=== PATIENT | female | born 1990 | race Caucasian/White ===

== ENCOUNTER 2023-01-27 16:31 | Outpatient (CLI) | payer OTHER, SELFPAY ==
--- NOTE | 2023-01-27 17:00 | CRLHL7_ITS ---
For Patients: As a result of the Cures Act, medical imaging exams and procedure reports are released immediately into your electronic medical record. You may view this report before your referring provider. If you have questions, please contact your health care provider. INDICATION: Dating and viability. LMP 11/23/2022. COMPARISON: None. TECHNIQUE: Real-time cox-scale imaging of the pelvis was performed. FINDINGS: Sonographic imaging demonstrates a single living intrauterine gestation. The embryo has a regular cardiac rate measuring 182 beats per minute. The embryo`s crown-rump length measurement of 2.7 cm corresponds to a gestational age of 9 weeks 4 days with a sonographic due date of 08/28/2023. There is a normal-appearing yolk sac. The placenta has not yet developed. No evidence of a perigestational hemorrhage. The cervix appears closed. The right ovary measures 4.6 x 1.6 x 1.6 cm and the left ovary measures 3.1 x 2.1 x 2.3 cm. No free fluid in the cul-de-sac. IMPRESSION: 1. Single living intrauterine gestation with crown rump length 2.7 cm which corresponds to a gestational age of 9 weeks 4 days with a sonographic due date of 08/28/2023. 2. The clinical gestational age by LMP age is 9 weeks 2 days. Dictated by Cee Elliott MD @ 01/27/2023 7:29:15 PM (Electronically Signed)
== END 2023-01-27 16:32 | disposition home or self-care (01) ==
LOC: US 16:32
PROVIDERS: Visit Provider Registered Nurse
DX: Z34.91 Encounter for supervision of normal pregnancy, unspecified, first trimester (principal); Z3A.09 9 weeks gestation of pregnancy
CPT/HCPCS: 0353U; 76817; 84443; 86592; 86762; 86787; 86850; 86900; 86901; 87086

== ENCOUNTER 2023-06-10 08:30 | Outpatient (CLI) | payer OTHER, SELFPAY | END 2023-06-10 08:31 | disposition home or self-care (01) | LOC: NFLDREF 06-11 07:50 | PROVIDERS: Visit Provider Advanced Practice Midwife | DX: O09.813 Supervision of pregnancy resulting from assisted reproductive technology, third trimester (principal); E03.9 Hypothyroidism, unspecified; Z3A.28 28 weeks gestation of pregnancy | CPT/HCPCS: 84443; 86592 ==

== ENCOUNTER 2023-07-20 13:38 | Outpatient (CLI) | payer OTHER, SELFPAY ==
--- NOTE | 2023-07-20 14:00 | CRLHL7_ITS ---
For Patients: As a result of the Century Cures Act, medical imaging exams and procedure reports are released immediately into your electronic medical record. You may view this report before your referring provider. If you have questions, please contact your health care provider. INDICATION: Third trimester scan, evaluate growth. COMPARISON: 01/27/2023 TECHNIQUE: Real time cox scale imaging of the fetus was performed. FINDINGS: Sonographic imaging demonstrates a single living intrauterine gestation. Fetus demonstrates a regular cardiac rate of 145 beats per minute. Fetus has a vertex position. The placenta lies posteriorly. Amniotic fluid volume appears normal and there is a single deepest vertical pocket: 5.7 cm. The estimated weight is 2560gm which lies at the 65th %. BPD 73rd percentile. HC 72nd percentile. AC 73rd percentile. FL 43rd percentile. The HC/AC ratio measures 1.04 range (0.93-1.10). IMPRESSION: Sonographic gestational age 35 weeks 2 days and sonographic due date 08/22/2023. Sonographic age 1 week ahead of the clinical age. Estimated weight 65th percentile. Abdominal circumference 73rd percentile. Dictated by Jason Addison MD @ 07/22/2023 6:36:25 AM (Electronically Signed)
== END 2023-07-20 13:39 | disposition home or self-care (01) ==
LOC: US 13:39
PROVIDERS: PCP Family Medicine; Visit Provider Advanced Practice Midwife
DX: O09.813 Supervision of pregnancy resulting from assisted reproductive technology, third trimester (principal); Z3A.35 35 weeks gestation of pregnancy
CPT/HCPCS: 76816

== ENCOUNTER 2023-08-06 10:22 | Outpatient (CLI) | payer OTHER, SELFPAY ==
[2023-08-07 15:33] LABS: Strep B DNA Probe POSITIVE (Negative)
[2023-08-07 15:34] LABS: Strep B Pen/Amox Allergy No
== END 2023-08-06 10:23 | disposition home or self-care (01) ==
PROVIDERS: PCP Family Medicine; Visit Provider Advanced Practice Midwife
DX: Z34.93 Encounter for supervision of normal pregnancy, unspecified, third trimester (principal); Z3A.37 37 weeks gestation of pregnancy
CPT/HCPCS: 82565; 82570; 84156; 84450; 84460; 84520; 84550; 87081; 87653

== ENCOUNTER 2023-08-08 06:53 | Inpatient (IN) | payer OTHER, SELFPAY ==
[2023-08-08] VITALS (15 sets, daily range): BP systolic 115–146; BP diastolic 73–95; PULSE 84–131; RESP 16; TEMP 36.8–37.1; O2SAT 91–99; BMI 36.5
--- NOTE | 2023-08-08 08:13 | P.LDBA_ITS ---
Subjective History of Present Illness Date Seen: 08/08/23 Narrative: Patient is being admitted to Labor and Delivery for IOL for preeclampsia without severe features. She is a 32 year old at 37.0 weeks gestation. Her full history and physical was dictated by [] on []. Please see this for details. [] Specific Issues/Plans G 1 P 0 : Saul 1. IVF . Frozen embryo transfer 12/11/22 20 week level 2 ultrasound with echo-distant family hx of cardiac defects: echo normal. Level II: EFW 47% TVUS at MPP at 24 weeks (unclear why in records) BPP at 36 weeks: consider at 38 weeks Consider growth ultrasound at 34 weeks: 65%ile Weekly NSTs starting at 36 weeks: planning Mat21: negative 2. BMI 31.6. Hemoglobin A1c: 4.8 Recommend that she continues a daily baby aspirin to reduce risk of preeclampsia. 3. Hypothyroidism. 88mcg levothyroxine. TSH and T4 each trimester (states she is sensitive to med adjustments) 2nd trimester: 1.2. 4. Elevated BP in clinic 08/06 Labs WNL except P/c ratio 0.3 IOL tentatively for 08/08 New OB labs collected with the exception of HIV, hepatitis-B antigen, hepatitis- C antibody, as these were done 11/18/2022 at [facility]. These records are being requ ested.[] Requesting records from [facility] for last Pap smear, estimated to be done January 2020. [] Pap collected at [facility]. Flu: Completed COVID: Completed and boosted x1. Recommend bivalent booster Tdap: 06/24/2023 OB Exam Physical Exam Vital signs: Temp Pulse Resp BP Pulse Ox 98.6 F 121 H 16 136/92 H 98 08/08/23 07:50 08/08/23 07:43 08/08/23 07:50 08/08/23 07:43 08/08/23 07:43
--- NOTE | 2023-08-08 08:15 | P.OBHP_ITS ---
OB - H&P: HPI Labor/Induction History of Present Illness Date Seen: 08/08/23 Chief Complaint: The patient is a 32 year old 1 para 0 at 37.0 weeks gestation based on embryo transfer date, who presents for an IOL for preeclampsia without severe features. Chief complaint: maternity : 1 Para: 0 Indications for induction: pre-eclampsia Narrative: Jennifer Rose is a 32 year old female. Cervical exam this morning was 0cm with outer OS 0.5, thick and high. Cervix was very anterior. Confirmed vertex this morning with bedside ultrasound. Blood pressure this morning was 136/92. Repeat labs were ordered. Reviewed options of IOL including Cytotec, Cervidil, cook catheter, and Pitocin. She would like to proceed with Cytotec induction. Specific Issues/Plans G 1 P 0 : Saul Razo. IVF . Frozen embryo transfer 12/11/22 20 week level 2 ultrasound with echo-distant family hx of cardiac defects: echo normal. Level II: EFW 47% TVUS at MPP at 24 weeks (unclear why in records) BPP at 36 weeks: consider at 38 weeks Consider growth ultrasound at 34 weeks: 65%ile Weekly NSTs starting at 36 weeks: planning Mat21: negative 2. BMI 31.6. Hemoglobin A1c: 4.8 Recommend that she continues a daily baby aspirin to reduce risk of preeclampsia. 3. Hypothyroidism. 88mcg levothyroxine. TSH and T4 each trimester (states she is sensitive to med adjustments) 2nd trimester: 1.2. 4. Elevated BP in clinic 08/06 Labs WNL except P/c ratio 0.3 IOL tentatively for 08/08 New OB labs collected with the exception of HIV, hepatitis-B antigen, hepatitis- C antibody, as these were done 11/18/[address] [facility]. These records are being requested.[] Requesting records from [facility] for last Pap smear, estimated to be done January 2020. [] Pap collected at [facility]. Flu: Completed COVID: Completed and boosted x1. Recommend bivalent booster Tdap: 06/24/2023 History of Present Dating criteria: other (embryo transfer date) care: good care Ultrasounds: normal 1st trimester US and normal mid trimester US Abnormal ultrasound findings: IMAGING:??? 1st trimester: 1. Single living intrauterine gestation with crown rump length 2.7 cm which corresponds to a gestational age of 9 weeks 4 days with a sonographic due date of 08/28/2023.?2. The clinical gestational age by LMP age is 9 weeks 2 days.?Dictated by Cee Elliott MD @ 01/27/2023??? Anatomy scan:? Level II with MPP: Breech, EFW 43%, no anomalies identified, echo normal, DVP 4.07.?? Others: Sonographic gestational age 35 weeks 2 days and sonographic due date 08/22/2023. Sonographic age 1 week ahead of the clinical age.?Estimated weight 65th percentile. Abdominal circumference 73rd percentile.?Dictated by Jason Addison MD @ 07/22/2023? complications: preeclampsia Labs Blood type: A (+) positive GBS status: positive Review of Systems Status of ROS: Reports: 6 or more systems reviewed and unremarkable except as noted in History and below Eyes: Denies: change in vision GI: Denies: abdominal pain Neuro: Denies: headache Meds Home Medications and Allergies Home Medications Medication Instructions Recorded Confirmed Type aspirin 81 mg tablet,delayed 81 mg PO QDAY 01/27/23 08/08/23 History release cholecalciferol (vitamin D3) 25 25 mcg PO QDAY 01/27/23 08/08/23 History mcg (1,000 unit) capsule diphenhydramine HCl 25 mg capsule 25 mg PO .QD PRN 01/27/23 08/08/23 History (Allergy (diphenhydramine)) docosahexaenoic acid 200 mg mg PO 01/27/23 08/07/23 History capsule ( DHA) famotidine-Ca carb-mag hydrox 10 1 tab PO QDAY PRN 05/13/23 08/08/23 History mg-800 mg-165 mg chewable tablet (Pepcid Complete) calcium carbonate 200 mg calcium 1,000 mg PO DAILY PRN dyspepsia 08/08/23 08/08/23 History (500 mg) chewable tablet (Antacid (calcium carbonate)) Allergies Allergy/AdvReac Type Severity Reaction Status Date / Time Latex, Natural Rubber Allergy Mild Redness of Verified 08/08/23 07:37 Skin, rash OB - H&P: Exam Physical Exam: Vital signs: Temp Pulse Resp BP Pulse Ox 98.6 F 121 H 16 136/92 H 98 08/08/23 07:50 08/08/23 07:43 08/08/23 07:50 08/08/23 07:43 08/08/23 07:43 Constitutional: Constitutional: no acute distress Routine HEENT Exam: Head: Present normal inspection Eye: Present normal appearance Routine Neck Exam: Neck: Present full ROM Routine Respiratory Exam: Respiratory: Present CTA bilaterally Routine Cardiovascular Exam: Cardiovascular: RRR Detailed Labor and Delivery Exam: Patient Gravid: Yes Dilation (cm): 0 Effacement (%): 0 Cervix position: anterior Consistency: medium Tachysystole: No Contraction intensity: Mild (only feeling occasional tightening ) Fetus (Single): Station: -4 Amniotic Membrane Status: intact Heart Rate Baseline: 140 Monitor Accelerations: Present Monitor Decelerations: None Retirement Variability: Moderate (6-25) (periods of marked variability ) Routine Back/Spine/Pelvis Exam: Back/Spine: full ROM Routine Skin Exam: Present intact Routine Neurological Exam: Present alert and oriented X3 Routine Psychiatric Exam: Present normal affect and normal thought process OB - Problem Based A/P Additional Plan (1) resulting from in-vitro fertilization: Status: Acute (2) Infertility: Status: Acute (3) Hypothyroidism: Status: Acute (4) Pre-eclampsia in third trimester: Status: Acute (5) Encounter for induction of labor: Status: Acute Plan ASSESSMENT:? at 37.0 weeks gestation? GBS positive? Preeclampsia without severe features IOL? Vertex presentation confirmed by bedside US. ?? PLAN:? 1. Antibiotic prophylaxis treatment per protocol when in active labor.? 2. Reviewed risks and benefits of IOL with Pitocin vs Cytotec. Pt prefers Cytotec. Pitocin to follow if needed.? 3. Candidate for analgesia of choice. 5. Monitor blood pressures. Repeat labs ordered.? 6. Anticipate ? 7. IV in place. Monitoring per Cytotec policy? ? Delivery/Labor/Induction Plan Plan: induction Induction method: per misoprostol protocol
[2023-08-08] MEDS: miSOPROStoL 25 MCG/0.25 TABLET VAGINAL ×3 (08:41→15:23)
[2023-08-08 08:44] LABS: Hematocrit 37.7 % (33.0-51.0); Hemoglobin* 12.5 gm/dL (12.0-16.0); Mean Corpuscular HGB Conc 33 gm/dL (32-36); Mean Corpuscular Hemoglobin 30 pg (26-34); Mean Corpuscular Volume 89 fL (80-100); Platelet Count* 285 K/uL (140-440); Red Blood Count 4.22 m/uL (4.00-5.20); White Blood Count* 13.02 K/uL (4.50-11.00)
[2023-08-08 08:50] LABS: Slide Review Reflex No
[2023-08-08 09:12] LABS: Creatinine* 0.5 mg/dL (0.5-1.5); Est. Creatinine Clearance* 148.04; Estimated Glomerular Filt Rate 129 ml/min
[2023-08-08 09:13] LABS: Alanine Aminotransferase* 41 U/L (4-35); Aspartate Amino Transferase* 38 U/L (12-35); Blood Urea Nitrogen* 8 mg/dL (5-24)
[2023-08-08 10:15] LABS: Total Protein Urine 14 mg/dL
[2023-08-08 10:16] LABS: Creatinine Urine 55.1 mg/dL
[2023-08-08] MEDS: ONDANSETRON 2 MG/ML inj 4 MG IV (11:15)
[2023-08-08] MEDS: miSOPROStoL 25 MCG/0.25 TABLET 50 MCG VAGINAL (18:37)
--- NOTE | 2023-08-08 20:35 | PM.OBPNL ---
Subjective Date Seen: 08/08/23 Narrative: Faina received her 4th dose of vaginal Cytotec around 1830 this evening. She had made slight cervical progress at that time and was 1.5cm/50%/-3 per RN exam. She was still only feeling the contractions as cramping. Baby was tolerating labor well with a reactive strip. The decision was made to increase that dose from 25mcg to 50mcg. Since that dose she has not noticed a change in her contraction intensity. We discussed a plan going forward. We will plan on doing 50mcg again for the 5th dose of Cytotec unless tolerance or contraction pattern would not be tolerant of tis dose. Will evaluate for the next dose at 4-5 hours after the last dose. We did discuss next steps after Cytotec. Will likely process with Pitocin titration 4 hours after the last dose of Cytotec. Pitocin administration, risks and benefits were reviewed with the patient and her and she is agreeable to this plan. I did encourage her to consider morphine/Vistaril for sleep tonight. All questions answered. Blood pressures have remained in the 130's/80-90's. Denies symptoms of preeclampsia. AST and ALT slightly elevated, P/C ratio normal at 0.2. Objective Vital Signs: Last Vital Signs Temp 98.3 F 08/08/23 19:43 Pulse 113 H 08/08/23 19:43 Resp 16 08/08/23 19:43 BP 138/89 08/08/23 19:43 Pulse Ox 98 08/08/23 11:22 Pelvic Exam Dilation (cm): 1.5 Effacement (%): 50% Station: -3 Comments: per RN exam Contractions Monitor mode: External Contraction Frequency: 1.5-6 with some coupling and tripling and irritability Contraction pattern: Irregular Contraction intensity: Mild (only feeling occasional tightening ) Assessment Assessment: induction ongoing Station: -3 Heart Rate Baseline: 120 Network Consultant Variability: Moderate (6-25) Monitor Accelerations: Present Monitor Decelerations: None Plan Plan: Continue with Cytotec induction with Pitocin to follow. Continue to monitor blood pressures.
[2023-08-08 21:24] LABS: Hematocrit 38.3 % (33.0-51.0); Hemoglobin* 12.8 gm/dL (12.0-16.0); Mean Corpuscular HGB Conc 33 gm/dL (32-36); Mean Corpuscular Hemoglobin 30 pg (26-34); Mean Corpuscular Volume 89 fL (80-100); Platelet Count* 300 K/uL (140-440); Red Blood Count 4.32 m/uL (4.00-5.20); White Blood Count* 17.69 K/uL (4.50-11.00)
[2023-08-08 21:36] LABS: Slide Review Reflex No
[2023-08-08 21:40] LABS: Magnesium* 1.9 mg/dL (1.5-2.6)
[2023-08-08] MEDS: LACTATED RINGERS 1000 ML 1,000 ML 999 ML IV (23:48)
[2023-08-09] VITALS (64 sets, daily range): BP systolic 112–160; BP diastolic 60–105; PULSE 70–229; RESP 16–18; TEMP 36.4–37.1; O2SAT 82–100
[2023-08-09] MEDS: CALCIUM CARBONATE 500 MG CHEW PO ×2 (00:44→19:11)
[2023-08-09] MEDS: AMPICILLIN 2 GM in 0.9 % SODIUM CHLORIDE Mini-bag 100 ML IVPB (01:44)
[2023-08-09] MEDS: TERBUTALINE 1 MG/ML INJ 0.25 MG SUBCUT (02:59)
[2023-08-09] MEDS: AMPICILLIN 1 GM in 0.9 % SODIUM CHLORIDE Mini-bag 100 ML IVPB ×4 (05:54→18:12)
--- NOTE | 2023-08-09 08:20 | P.OBPN_ITS ---
Subjective Date Seen: 08/09/23 Narrative: A call was received overnight around 0245 to report recurrent late decel erations. 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 She did have a difficult time with position changes due to nausea and vomiting. Her cervix was found to be unchanged at that time. The decision was made to give terbutaline at that time. She was then able to get a few hours of sleep and baby did recover well to a category I tracing. This morning we had a discussion about how to proceed with the induction. Options were reviewed of Pitocin titration or Cook catheter. Risks and benefits of each was reviewed and she would like to proceed with Pitocin titration. We did discuss the possibility of baby not tolerating these contractions and did review the possibility of proceeding with a section. She did state that this is something her and her had been discussing overnight. Blood pressures have remained stable. Objective Vital Signs: Last Vital Signs Temp 98 F 08/09/23 07:27 Pulse 86 08/09/23 07:26 Resp 16 08/09/23 07:27 BP 145/88 H 08/09/23 07:26 Pulse Ox 82 L 08/09/23 00:46 Pelvic Exam Dilation (cm): 1.5 Effacement (%): 50% Station: -2 Contractions Monitor mode: External Contraction pattern: Irregular Contraction intensity: Mild (only feeling occasional cramping in her back) Assessment Assessment: induction ongoing Station: -2 Heart Rate Baseline: 125 Field Laboratory Operator Variability: Moderate (6-25) Monitor Accelerations: Present Monitor Decelerations: Variable (occasional shallow variable noted, late decels have resolved) Plan Plan: Proceed with pitocin titration for continued induction. Continue to monitor blood pressures.
[2023-08-09] MEDS: LACTATED RINGERS 1000 ML 1,000 ML 125 ML IV ×2 (08:39→17:25)
[2023-08-09] MEDS: OXYTOCIN 30 unit/500 ML in NS 30 UNIT/500 ML BAG IVPB (08:40)
[2023-08-09] MEDS: LIDOCAINE 2% (PF) 5 ML VIAL EPIDURAL (18:00)
[2023-08-09] MEDS: ROPIVACAINE 0.2% 100 ml 100 ML 12 MG EPIDURAL (18:06)
--- NOTE | 2023-08-09 18:07 | PM.ANBPRC ---
[facility] Surgical History [place] teeth extracted ?K08.409 - Partial loss of teeth, unspecified cause, unspecified class (ICD-10) Social History What is your current living situation?: I presently have a place to live Problems where you live: no known problems In the past 12 months, utilities in danger of being shut off: no In past 12 months, lack of transportation kept you from medical appts, meetings, work, or getting things needed for daily living: no In the past 12 mos, have been you worried that your food would run out before you had money to buy more?: never true In the past 12 mos, the food you bought just didn't last and you didn't have money to buy more?: never true Smoking Status: Never smoker How often does anyone, including family, friends and others, physically hurt you: never How often does anyone, including family, friends and others, insult or talk down to you: never How often does anyone, including family, friends and others, threaten you with harm: never How often does anyone, including family, friends and others, scream or curse at you: never Little interest or pleasure in doing things: not at all Feeling down, depressed, or hopeless: not at all Meds Home Medications and Allergies Home Medications Medication Instructions Recorded Confirmed Type aspirin 81 mg tablet,delayed 81 mg PO QDAY 01/27/23 08/08/23 History release cholecalciferol (vitamin D3) 25 25 mcg PO QDAY 01/27/23 08/08/23 History mcg (1,000 unit) capsule diphenhydramine HCl 25 mg capsule 25 mg PO .QD PRN 01/27/23 08/08/23 History (Allergy (diphenhydramine)) docosahexaenoic acid 200 mg mg PO 01/27/23 08/07/23 History capsule ( DHA) famotidine-Ca carb-mag hydrox 10 1 tab PO QDAY PRN 05/13/23 08/08/23 History mg-800 mg-165 mg chewable tablet (Pepcid Complete) calcium carbonate 200 mg calcium 1,000 mg PO DAILY PRN dyspepsia 08/08/23 08/08/23 History (500 mg) chewable tablet (Antacid (calcium carbonate)) Allergies Allergy/AdvReac Type Severity Reaction Status Date / Time Latex, Natural Rubber Allergy Mild Redness of Verified 08/08/23 07:37 Skin, rash Results Labs Labs: Laboratory Results - last 24 hr 08/08/23 21:30 WBC 17.69 H RBC 4.32 Hgb 12.8 Hct 38.3 MCV 89 MCH 30 MCHC 33 Plt Count 300 Magnesium 1.9 Vital Signs Vital Signs: Last Vital Signs Temp 97.5 F L 08/09/23 15:50 Pulse 75 08/09/23 18:06 Resp 16 08/09/23 15:50 BP 140/82 H 08/09/23 18:06 Pulse Ox 100 08/09/23 18:07 Weight: 99.79 kg Height: 165.1 cm Anesthesia Procedures Epidural Insertion Patient Location: OB Start Time: 17:35 Stop Time: 18:15 Start Date: 08/09/23 Stop Date: 08/09/23 Reason for Block: primary anesthetic Patient Position: sitting Performed By: Markos Ceballos Preanesthetic Checklist: IV checked, risks and benefits discussed, surgical consent, monitors and equipment checked, pre-op evaluation, timeout performed and anesthesia consent Prep: chlorhexidine gluconate Monitoring: blood pressure monitoring, java analyst, continuous pulse oximetry and heart rate Approach: midline Vertebral Space: lumbar (1-5) Needle Type: Tuohy needle Injection Technique: continuous catheter (catheter) Needle gauge: 17 Needle Length (cm): 10 cm Needle Insertion Depth (cm): 6 Catheter Gauge: 19 Catheter Type: multi-orifice Catheter at skin depth (cm): 11 Test Dose Result: negative and lidocaine 1.5% with epinephrine 1 to 200,000
--- NOTE | 2023-08-09 18:09 | PM.OBPNL ---
Subjective Date Seen: 08/09/23 Narrative: Faina was started on Pitocin this morning and was tolerated contractions well with only cramping and some back pain with contractions. FHR was reactive and mostly category I and only occasionally category II. I was notified of SROM with clear fluid shortly after 1200. Around 1630 she was experiencing significant;y more pain with contractions and was rating them 9/10. She did stat using nitrous around that time and SVE per the RN was 6cm/90%/0. At that time she requested an epidural for pain management. She received her epidural and is now comfortable. Will continue with Pitocin induction and anticipate vaginal delivery. Objective Vital Signs: Last Vital Signs Temp 97.5 F L 08/09/23 15:50 Pulse 78 08/09/23 18:08 Resp 16 08/09/23 15:50 BP 142/83 H 08/09/23 18:08 Pulse Ox 100 08/09/23 18:07 Pelvic Exam Dilation (cm): 6 Effacement (%): 90% Station: 0 Contractions Monitor mode: External Contraction Frequency: 2-4 min Contraction pattern: Irregular Contraction intensity: Strong/Firm Assessment Assessment: active labor and induction ongoing Station: 0 Amniotic Membrane Status: SROM Status: Category l Heart Rate Baseline: 120 Community Marketing Manager Variability: Moderate (6-25) Monitor Accelerations: Present Monitor Decelerations: None Plan Plan: Continue with Pitocin titration. Continue GBS prophylaxis. Anticipate vaginal delivery.
[2023-08-09] MEDS: miSOPROStoL 800 MCG/4 TABLET PR (23:40)
[2023-08-10] VITALS (20 sets, daily range): BP systolic 108–147; BP diastolic 61–93; PULSE 86–154; RESP 16–18; TEMP 36.6–36.8; O2SAT 95–100
--- NOTE | 2023-08-10 00:31 | PM.OBCN1 ---
OB - CN: HPI Date of Consult Time Seen by Provider: 00:15 Date Seen: 08/10/23 Patient: [facility] Patient Consult date: 08/10/23 Requesting Physician: Keri Cantu CNM Primary Care Provider: Roya Branham MD Consult Narrative Reason for consult: retained placenta Narrative: The patient is a 32 year old now G 1 P 1001 in the third stage of labor following after IOL for pre-eclampsia at 37w0 under care of CN service. Placenta has not delivered after an hour past , and the patient has received oxytocin and misoprostol. Bleeding has not been excessive. Patient is comfortable in delivery bed in dorsal lithotomy position with on chest, epidural in place with good analgesia. History of Present Dating criteria: based on LMP care: good care Ultrasounds: normal 1st trimester US and normal mid trimester US complications: preeclampsia complications comment: Obesity, hypothyroidism History History 1 Elective abortions Para 1 Spontaneous abortions Hx # Term Pregnancies Ectopic pregnancies Hx # Pregnancies Multiple births Number of Living Children 0 Labs Blood type: A (+) positive GBS status: positive OB Labs: Lab Assessment Start: 08/08/23 07:12 Freq: ONCE Status: Complete Protocol: PC.OBGBS Activity Type Activity Date Activity User E-sign Co-sign Detail Recorded Client Recorded Date Recorded By Document 08/09/23 00:49 [facility] [id number] 08/09/23 00:49 [facility] 08/09/23 00:49 Lab Assessment GBS Status positive Is Patient Allergic to Penicillin? No Treatment Required OK Review of Systems Status of ROS: Reports: 10 or more systems reviewed and unremarkable except as noted in History and below PFSH PFS Surgical History [place] teeth extracted ?K08.409 - Partial loss of teeth, unspecified cause, unspecified class (ICD-10) Social History What is your current living situation?: I presently have a place to live Problems where you live: no known problems In the past 12 months, utilities in danger of being shut off: no In past 12 months, lack of transportation kept you from medical appts, meetings, work, or getting things needed for daily living: no In the past 12 mos, have been you worried that your food would run out before you had money to buy more?: never true In the past 12 mos, the food you bought just didn't last and you didn't have money to buy more?: never true Smoking Status: Never smoker How often does anyone, including family, friends and others, physically hurt you: never How often does anyone, including family, friends and others, insult or talk down to you: never How often does anyone, including family, friends and others, threaten you with harm: never How often does anyone, including family, friends and others, scream or curse at you: never Little interest or pleasure in doing things: not at all Feeling down, depressed, or hopeless: not at all Meds Home Medications and Allergies Home Medications Medication Instructions Recorded Confirmed Type aspirin 81 mg tablet,delayed 81 mg PO QDAY 01/27/23 08/08/23 History release cholecalciferol (vitamin D3) 25 25 mcg PO QDAY 01/27/23 08/08/23 History mcg (1,000 unit) capsule diphenhydramine HCl 25 mg capsule 25 mg PO .QD PRN 01/27/23 08/08/23 History (Allergy (diphenhydramine)) docosahexaenoic acid 200 mg mg PO 01/27/23 08/07/23 History capsule ( DHA) famotidine-Ca carb-mag hydrox 10 1 tab PO QDAY PRN 05/13/23 08/08/23 History mg-800 mg-165 mg chewable tablet (Pepcid Complete) calcium carbonate 200 mg calcium 1,000 mg PO DAILY PRN dyspepsia 08/08/23 08/08/23 History (500 mg) chewable tablet (Antacid (calcium carbonate)) Allergies Allergy/AdvReac Type Severity Reaction Status Date / Time Latex, Natural Rubber Allergy Mild Redness of Verified 08/08/23 07:37 Skin, rash OB - H&P: Exam Physical Exam: Vital signs: Temp Pulse Resp BP Pulse Ox 98.7 F 113 H 17 126/61 91 08/09/23 22:36 08/10/23 00:30 08/09/23 22:36 08/10/23 00:30 08/09/23 18:12 Constitutional: Constitutional: no acute distress and cooperative Comments: Comfortable in bed with on chest Routine Abdominal Exam: Abdominal: Present soft; Absent tenderness Comments: Uterus firm above umbilicus Detailed Labor and Delivery Exam: Patient Gravid: No Dilation (cm): 10 Effacement (%): 100 Cervix position: anterior Consistency: soft Comments: Umbilical cord extending from vagina, placenta undelivered in uterus OB - CN: A/P Assessment and Plan (1) resulting from in-vitro fertilization: Status: Acute (2) Infertility: Status: Acute (3) Hypothyroidism: Status: Acute (4) Pre-eclampsia in third trimester: Status: Acute (5) Encounter for induction of labor: Status: Acute Procedure Note Time Seen by Provider: 00:15 Date Seen: 08/10/23 Date of procedure: 08/10/23 Will [facility] bill your pro fee for this procedure?: Yes Pre-op diagnosis: Retained placenta Post-op diagnosis: other Procedure: Procedure: Delivery of placenta Technique: patient was in dorsal lithotomy position with epidural in place. Pelvic exam yielded umbilical cord leading into vagina and uterus connected to the placenta. The clamp on the uterus was repositioned closer to the perineum and steady traction placed on the umbilical cord. The placenta was then delivered spontaneously, examined, and noted to be intact. A bimanual exam was performed and partial manual exploration of the uterus to remove residual clot and debris. Patient tolerated the procedure. Anesthesia: epidural Surgeon: Rashad Pérez Estimated blood loss (mL): 0 Pathology: specimen obtained, sent to pathology Condition: stable
--- NOTE | 2023-08-10 00:45 | PM.OBPNL ---
Subjective Date Seen: 08/10/23 Narrative: Pt was given IV pitocin and rectal Cytotec for some brisk bleeding after delivery of with improvement. Placenta was not releasing after 45 minutes, OB was called to evaluate. Objective Vital Signs: Last Vital Signs Temp 98.7 F 08/09/23 22:36 Pulse 113 H 08/10/23 00:30 Resp 17 08/09/23 22:36 BP 126/61 08/10/23 00:30 Pulse Ox 91 08/09/23 18:12 Plan Plan: OB to come see pt and evaluate next steps
--- NOTE | 2023-08-10 00:49 | W.PM.OBVAGDE ---
Documented by User: Sadi Noble CNM 08/10/23 01:06 OB Procedure Vag Delivery Mother Details Mother Details: The patient is a 32 year-old, 1, Para 1, admitted on 08/08/23 at 37.0 weeks gestation. She was induced for preeclampsia without severe features. : 1 Para: 1 Weeks Gestation: 37.2 Admission Date: 08/08/23 Additional Details Amniotic Membrane Status: SROM Amniotic Membrane Rupture Date: 08/09/23 Amniotic Membrane Rupture Time: 12:03 Amniotic Membrane Fluid Description: Clear Analgesia/Anesthesia Type: Epidural Waterbirth: No Pitcoin: Yes Intrapartal Events: Labor Induction Induction Method: per pitocin protocol Labor Onset: 16:55 Complete: 21:28 Pushin:40 Heart: heart tones during second stage were 125-135, late decelerations resolved after position changes were made. Moderate variability noted, + accelerations. Delivery Details Delivery Date: 08/09/23 Delivery Time: 23:22 Gender: Male Viability: Alive; Heart Rate Present Position at Delivery: OA Delivery Details: Delivered over intact perineum via spontaneous vaginal delivery. was placed on maternal abdomen.? Cord was clamped and cut after a > 5minute delay. Nose and mouth were bulb suctioned.? weight 6lbs 9oz. Patient was admitted for induction of labor for preeclamsia and progressed normally/with augmentation. SROM noted at 1203 with clear fluid. Patient was complete at 2128 and pushing at 2140. of a viable male at 2322 in semifowlers position. Vertex delivered OA. No nuchal cord or shoulder. Body delivered easily and without incident. Infant passed to mothers abdomen with a vigorous cry. Cord was clamped and cut at > 5 minutes. APGARS were 9 at one minute and 9 at five minutes respectively. Mouth was bulb suctioned. Intact placenta with a 3 vessel cord delivered spontaneously at 0026. Dr. Boone was called to evaluate when placenta had not delivered by 45 minutes. See his note for details. Fundus firm. Shallow 2nd degree identified and not repaired as was hemostatic and the edges sat together well. Repair was offered to patient and declined with shared decision making. QBL 1033 cc. Mother and baby stable; mother plans to breastfeed. weight pending. 1 Minute Interval Total Score: 9 5 Minute Interval Total Score: 9 Additional Details Shoulder Dystocia: No Placenta Delivery Time: 00:26 Placental Delivery Description: Spontaneous Procedure Done: Global Laceration: Perineal - 2nd Degree (shallow and not repaired) Blood Loss Measurement Type: QBL Bakri Used: No Sponge/Need Count Correct: Yes Cord Vessel Description: 3 Vessels, Nuchal Cord, True Knot and Delivered through Event Summary Status: Mother and infant were stable after delivery. Disposition: floor Documented by User: Keri Cantu CNM 08/10/23 01:21 OB Procedure Vag Delivery Mother Details Weeks Gestation: 37.1 Additional Details Induction Method: per misoprostol protocol Delivery Details Delivery Details: Delivered over intact perineum via spontaneous vaginal delivery. Infant was placed on maternal abdomen.? Cord was clamped and cut after a > 5minute delay. Nose and mouth were bulb suctioned.? Infant weight 6lbs 9oz. Patient was admitted for induction of labor for preeclampsia and progressed normally with augmentation. She was given 5 doses of cytotec followed by pitocin. She did SROM and progressed to complete after that. She requested and received an epidural that provided good relief. SROM noted at 1203 with clear fluid. Patient was complete at 2128 and pushing at 2140. of a viable male at 2322 in semi fowlers position. Vertex delivered OA. No nuchal cord or shoulder. Body delivered easily and without incident. passed to mothers abdomen with a vigorous cry. Cord was clamped and cut at > 5 minutes. APGARS were 9 at one minute and 9 at five minutes respectively. Mouth was bulb suctioned. Intact placenta with a 3 vessel cord delivered spontaneously at 0026. Dr. Boone was called to evaluate when placenta had not delivered by 45 minutes. See his note for details. Fundus firm. Shallow 2nd degree identified and not repaired as was hemostatic and the edges sat together well. Repair was offered to patient and declined with shared decision making. QBL 1033 cc. Initial QBL was 700mL. She had an additional 333mL clot that was expelled with and emesis 1-1.5 hours after delivery. Small to scant bleeding after the clot expelled. Mother and baby stable; mother plans to breastfeed. weight pending. Additional Details Blood Loss: 1,033
[2023-08-10] MEDS: ONDANSETRON 2 MG/ML inj 4 MG IV (00:51)
[2023-08-10] MEDS: OXYTOCIN 30 unit/500 ML in NS 30 UNIT/500 ML BAG 125 UNIT IVPB (00:59)
[2023-08-10] MEDS: IBUPROFEN 600 MG TABLET PO ×4 (01:44→23:54)
[2023-08-10 06:28] LABS: Hemoglobin* 9.5 gm/dL (12.0-16.0)
--- NOTE | 2023-08-10 07:17 | PM.OBPNVD1 ---
OB - PN:Subj Subjective Time Seen by Provider: 07:17 Date Seen: 08/10/23 Interval history: Jennifer is a 32 y.o. who was admitted to [facility] & D for IOL for preeclampsia w/o severe features.? She had an NVD complicated by retained placenta.? ? ? Narrative: The patient feels well.? The pain is well controlled with current medications.? She has no new complaints.? She is breast feeding and reports the baby was sleepy for her last feed.? the patient has done well.? Vitals have been stable.? She has remained afebrile.? Has a good appetite, is tolerating a general diet.? She is voiding without difficulty.? She is passing gas and has not had a bowel movement.? She is ambulating and denies any dizziness.? Has Small amount of rubra lochia.? OB - PN: Obj Exam Physical Exam: Vital signs: Temp Pulse Resp BP Pulse Ox O2 Del Method 98.2 F 121 H 18 111/80 96 Room Air 08/10/23 02:42 08/10/23 02:42 08/10/23 02:42 08/10/23 02:42 08/10/23 02:42 08/10/23 02:42 Narrative: GENERAL APPEARANCE:? normal affect, alert, no distress? MOOD:? appropriate? HEENT: normocephalic, neck supple, full ROM? CHEST:? Symmetrical chest wall movement.? Normal respiratory effort.? Clear to auscultation ? HEART:? regular rate and rhythm? ABDOMEN:? soft, non-tender. Uterine fundus is firm, at Umbilicus, Midline and is appropriate for the stage of recovery.? Bowel sounds present.? PERINEUM:? mild edema of the perineum, there is a 2nd degree laceration that is healing well.? EXTREMITIES:? normal and +1 edema? OB - PN: Obj Data Labs Labs: Laboratory Results - last 24 hr 08/10/23 06:13 Hgb 9.5 L OB - PN: A/P Delivery Assessment and Plan (1) NVD (normal vaginal delivery): Status: Acute (2) Lactating mother: Status: Acute (3) Second degree laceration of perineum, delivered, current hospitalization: Status: Acute (4) Hypothyroidism: Status: Acute (5) resulting from in-vitro fertilization: Status: Acute (6) Preeclampsia: Status: Acute Plan Plan: routine care Comments: G 1 P 1 status post NVD?complicated by retained placenta ?? 1.? Continue route PP cares? 2.? .? May see if desired? 3.? Anticipate discharge home tomorrow? 4. Acute anemia.? -Iron supplement ordered. 5. Preeclampsia w/o severe features. -will continue to monitor blood pressure today, consider repeat labs if remain elevated. 6. Hypothyroid -continue with levothyroxine as previously ordered
[2023-08-10] MEDS: ACETAMINOPHEN 500 MG TABLET 1000 MG PO ×2 (12:46→20:31)
[2023-08-10] MEDS: DOCUSATE SODIUM 100 MG CAPSULE PO (12:46)
[2023-08-10] MEDS: FERROUS SULFATE 325 MG TABLET PO (12:46)
[2023-08-11] MEDS: ACETAMINOPHEN 500 MG TABLET 1000 MG PO (02:55)
[2023-08-11 05:36] VITALS: BP 107/72; PULSE 91; RESP 16; TEMP 36.7; O2SAT 97
--- NOTE | 2023-08-11 07:54 | P.DS_ITS ---
DS: Providers Provider Date Seen: 08/11/23 Date of admission: 08/08/23 06:53 Primary care physician: Roya Branham MD Admitting Clinician: eKri Cantu CNM Consults: 08/10/23 00:31 Consult to Physician [CONS] Routine Comment: Consulting Provider: Rashad Pérez Has provider been notified: Yes Attending Physician on discharge: Keri Cantu CNM DS: Diagnosis Discharge Diagnosis (1) care and examination immediately after delivery: Status: Acute (2) Preeclampsia: Status: Acute (3) Lactating mother: Status: Acute Exam Narrative: Exam Narrative: GENERAL APPEARANCE:? normal affect, alert, no distress MOOD:? appropriate CHEST:? clear to auscultation HEART:? regular rate and rhythm ABDOMEN:? soft, non-tender the uterine fundus is 1 below Umbilicus, Midline and is appropriate for the stage of recovery. PERINEUM:? mild edema of the perineum, there is a Perineal Laceration,?2nd degree not repaired, that is healing well. EXTREMITIES:? normal and no edema Const: Vital Signs, click to edit/add: Vital Signs - 24 hr 08/10/23 12:40 08/10/23 15:55 08/10/23 20:41 Temperature 98.2 F 98.2 F 98.1 F Pulse Rate [Pulse Oximeter] 112 H 117 H 97 Respiratory Rate 16 16 16 Blood Pressure [Ri ght Arm] 119/86 125/78 108/73 Pulse Oximetry 98 97 95 Oxygen Delivery Me thod Room Air Room Air Room Air 08/10/23 23:55 08/11/23 05:36 Temperature 98.1 F 98.0 F Pulse Rate [Pulse Oximeter] 86 91 Respiratory Rate 16 16 Blood Pressure [Ri ght Arm] 118/76 107/72 Pulse Oximetry 96 97 Oxygen Delivery Me thod Room Air Room Air Documenting provider has reviewed patient's vital signs: yes OB - DS: Summary Hospital Course Hospital Course: Jennifer is a 32 y.o. G 1 P 1 who was admitted to L & D for induction of labor for pre-eclampsia. ?She had a NVD complicated by hemorrhage. The patient feels well. ?The pain is well controlled with current medications. ?She has no new complaints. ?She is breast feeding and reports things are going well. the patient has done well.? Vitals have been stable.? She has remained afebrile.? Has a good appetite, is tolerating a general diet. ?She is voiding without difficulty.? She is passing gas and has not had a bowel movement.? She is ambulating and denies any dizziness.? Has small amount of rubra lochia. She is planning condoms for prevention. Problems: PPH with Anemia plan: Discharge home with baby. Follow up in 2 weeks and 6 weeks. , may see if needed Hgb 9.5. Iron supplement ordered orally every other day Pre-E. BP's normalized -Follow up in 3-5 days -Call for signs/symptoms of preeclampsia Peripartum Data Laceration description: Perineal - 2nd Degree complications: none [place] Infant Gender: Male Infant Discharge Plan: Home Status at Discharge Functional status at discharge: independent ambulation Overall status at discharge: patient is progressing back to baseline Time Spent with Patient Time attestation: Total time spent providing and/or coordinating discharge services: Time spent: Less than 30 minutes Discharge Plan Discharge Disposition: Home, Self-Care Date of Admission: 08/08/23 06:53 Consulting Providers: Rashad Pérez Primary Care Provider: Roya Branham Condition: Stable Anticipated Discharge Date/Time: 08/11/23 12:00 Discharge Medications: New acetaminophen 500 mg Tablet 1,000 mg PO Q6H PRNQty: 0 0RF ferrous sulfate 325 mg (65 mg iron) Tablet 325 mg PO Q48H Qty: 90 0RF docusate sodium 100 mg Capsule 100 mg PO DAILY Qty: 90 0RF ibuprofen 600 mg Tablet 600 mg PO Q6H PRNQty: 60 0RF Continued cholecalciferol (vitamin D3) 25 mcg (1,000 unit) capsule 25 mcg PO QDAY DHA 200 mg capsule PO diphenhydramine HCl [Allergy (diphenhydramine)] 25 mg capsule 25 mg PO .QD PRN Pepcid Complete 10-800-165 mg tablet,chewable 1 tab PO QDAY PRN calcium carbonate [Antacid (calcium carbonate)] 200 mg calcium (500 mg) tablet,chewable 1,000 mg PO DAILY PRN (Reason: dyspepsia) levothyroxine 88 mcg tablet 88 mcg PO DAILY Qty: 90 1RF Discontinued aspirin 81 mg tablet,delayed release (DR/EC) 81 mg PO QDAY Discharge Orders: Discharge Order (Routine); Ordered 08/11/23 Ordered By: Roma Cabrera Patient Education: OB Over the Counter Medication Information, OB Vaginal/Breast Feeding Additional Instructions: Discharge instructions were reviewed with the patient including signs and symptoms of infection and home going medications Nothing vaginally for 6 weeks: no tampons or intercourse Off Work or School for 6 weeks Follow Up [facility] for a BP check in 3-5 days Call with BP greater than or equal to 160/110 2-week visit: discuss feeding concerns, review control options and screen for anxiety/depression. 6-week visit for an annual exam. consultation services are available to all mothers and babies for the first year after delivery.? To make an appointment, please call [phone]. Activity Level: Activity as Tolerated Discharge Diet: Regular Follow Up Appointments: [facility] [Provider Group] Forms: [employer] Info Instructions
[2023-08-11] MEDS: FERROUS SULFATE 325 MG TABLET PO (08:26)
[2023-08-11] MEDS: IBUPROFEN 600 MG TABLET PO (08:26)
[2023-08-11] MEDS: DOCUSATE SODIUM 100 MG CAPSULE PO (08:27)
[2023-08-11 08:30] VITALS: BP 119/80; PULSE 102; RESP 16; TEMP 36.9; O2SAT 95
--- NOTE | 2023-08-11 11:55 | PC.NURSE ---
Patient preferred to call to make her own Pre-E 3 to 5 day follow up appointment.
== END 2023-08-11 11:55 | disposition home or self-care (01) | DRG 806 ==
PROVIDERS: Admitting Provider Advanced Practice Midwife; PCP Family Medicine; Visit Provider Advanced Practice Midwife
DX: O14.04 Mild to moderate pre-eclampsia, complicating childbirth (principal); D62 Acute posthemorrhagic anemia; Z37.0 Single live birth; O72.0 Third-stage hemorrhage; O90.81 Anemia of the puerperium; O99.824 Streptococcus B carrier state complicating childbirth; O70.1 Second degree perineal laceration during delivery; O99.284 Endocrine, nutritional and metabolic diseases complicating childbirth; E03.9 Hypothyroidism, unspecified; Z3A.37 37 weeks gestation of pregnancy
CPT/HCPCS: 01967; 36415; 59200; 76815; 82565; 82570; 83735; 84156; 84450; 84460; 84520; 85018; 85025; 85027; 86850; 86900; 86901; 88307; A9270; J0290; J2371; J2405; J2795; J3105; J7120

== ENCOUNTER 2023-08-12 20:00 | Inpatient (IN) | payer OTHER, SELFPAY ==
[2023-08-12 20:19] VITALS: BP 147/88; PULSE 87; RESP 18; TEMP 36.8; O2SAT 97
--- NOTE | 2023-08-12 20:21 | ED.GENADULT ---
HPI - General Adult General Time Seen by Provider: 20:22 Date Seen: 08/12/23 Chief complaint: Post OB/Post- Complication Stated complaint: High BP issues, gave on 08/09 Time Seen by Provider: 08/12/23 20:21 Source: patient and family Mode of arrival: ambulatory Limitations: no limitations History of Present Illness HPI narrative: 32-year-old day 3 status post induction at 37 weeks for preeclampsia who presents today with elevated blood pressures at home. She says she is seeing sparkles in front of her eyes but otherwise no headache, no abdominal pain, no nausea vomiting, does have some lower extremity swelling but unchanged from discharge. Not currently taking any medications. Related Data Home Medications Medication Instructions Recorded Confirmed cholecalciferol (vitamin D3) 25 25 mcg PO QDAY 01/27/23 08/08/23 mcg (1,000 unit) capsule diphenhydramine HCl 25 mg capsule 25 mg PO .QD PRN 01/27/23 08/08/23 (Allergy (diphenhydramine)) docosahexaenoic acid 200 mg mg PO 01/27/23 08/07/23 capsule ( DHA) famotidine-Ca carb-mag hydrox 10 1 tab PO QDAY PRN 05/13/23 08/08/23 mg-800 mg-165 mg chewable tablet (Pepcid Complete) calcium carbonate 200 mg calcium 1,000 mg PO DAILY PRN dyspepsia 08/08/23 08/08/23 (500 mg) chewable tablet (Antacid (calcium carbonate)) Previous Rx's Medication Instructions Recorded levothyroxine 88 mcg tablet 88 mcg PO DAILY #90 tabs 06/10/23 acetaminophen 500 mg tablet 1,000 mg (2 x 500 mg) PO Q6H PRN 08/11/23 #0 tabs docusate sodium 100 mg capsule 100 mg PO DAILY #90 caps 08/11/23 ferrous sulfate 325 mg (65 mg 325 mg PO Q48H #90 tabs 08/11/23 iron) tablet ibuprofen 600 mg tablet 600 mg PO Q6H PRN #60 tabs 08/11/23 Allergies Allergy/AdvReac Type Severity Reaction Status Date / Time Latex, Natural Rubber Allergy Mild Redness of Verified 08/08/23 07:37 Skin, rash PFSH PFSH Surgical History [place] teeth extracted ?K08.409 - Partial loss of teeth, unspecified cause, unspecified class (ICD-10) Social History What is your current living situation?: I presently have a place to live Problems where you live: no known problems In the past 12 months, utilities in danger of being shut off: no In past 12 months, lack of transportation kept you from medical appts, meetings, work, or getting things needed for daily living: no In the past 12 mos, have been you worried that your food would run out before you had money to buy more?: never true In the past 12 mos, the food you bought just didn't last and you didn't have money to buy more?: never true Smoking Status: Never smoker Do you use any of these nicotine containing products: None Second hand tobacco smoke exposure: No How often do you have a drink containing alcohol: never AUDIT-C Alcohol total score: 0 Non-prescribed substance use: denies use How often does anyone, including family, friends and others, physically hurt you: never How often does anyone, including family, friends and others, insult or talk down to you: never How often does anyone, including family, friends and others, threaten you with harm: never How often does anyone, including family, friends and others, scream or curse at you: never Little interest or pleasure in doing things: not at all Feeling down, depressed, or hopeless: not at all Exam Narrative: Exam Narrative: General: well nourished , NAD Head: Atraumatic and normocephalic ENT: External ears and external nose are normal Eyes: Conjunctiva clear, pupils are equal reactive, external ocular motions are intact Neck: Full spontaneous range of motion of the neck Lungs: No respiratory distress Musculoskeletal: No tenderness or deformity, patient has compression stockings on Neurologic: No gross focal neurologic deficits Skin: No rashes Psych: Mood and affect are appropriate Const: Vital Signs, click to edit/add: Vital Signs - 24 hr 08/12/23 20:19 08/12/23 20:57 Temperature 98.2 F Pulse Rate [Right Pulse Oximeter] 87 Respiratory Rate 18 Blood Pressure [Ri ght Upper Arm] 147/88 H 128/86 Pulse Oximetry 97 Oxygen Delivery Me thod Room Air Course Course ED Course: Patient seen and examined, delivery record from August 09 as well as admission records from August 08 to August 11 were reviewed. Patient presents with elevated blood pressures in the period, history of preeclampsia and induction of labor for this. On exam here, she is asymptomatic but blood pressures are 150s over 90s. Labs are ordered and will discuss with Ob. Reevaluation(s) Time of Reevaluation #1: 21:45 Reevaluation #1: Labs independently interpreted by me with normal platelets, normal BNP, no proteinuria. However, AST and ALT have doubled since prior check. Care was discussed with Dr. Solares, logistics management specialist who says this represents preeclampsia with severe features and recommends admission for care. Discussed diagnosis and plan with patient and spouse, questions answered and patient will be admitted. Vital Signs Vital signs: Initial Vital Signs Temperature 98.2 F 08/12/23 20:19 Temperature Source Temporal Artery Scan 08/12/23 20:19 Pulse Rate 87 08/12/23 20:19 Respiratory Rate 18 08/12/23 20:19 Blood Pressure 147/88 H 08/12/23 20:19 Blood Pressure Mean 107 H 08/12/23 20:19 Blood Pressure Position Standing 08/12/23 20:19 Pulse Oximetry 97 08/12/23 20:19 Oxygen Delivery Method Room Air 08/12/23 20:19 Vital Signs Temperature 98.2 F 08/12/23 20:19 Pulse Rate 87 08/12/23 20:19 Respiratory Rate 18 08/12/23 20:19 Blood Pressure 147/88 H 08/12/23 20:19 Pulse Oximetry 97 08/12/23 20:19 Oxygen Delivery Method Room Air 08/12/23 20:19 Temperature 98.2 F 08/12/23 20:19 Pulse Rate 87 08/12/23 20:19 Respiratory Rate 18 08/12/23 20:19 Blood Pressure 128/86 08/12/23 20:57 Pulse Oximetry 97 08/12/23 20:19 Oxygen Delivery Method Room Air 08/12/23 20:19 Medical Decision Making Lab Data Labs: Lab Results 08/12/23 08/12/23 Range/Units 20:29 20:37 WBC 12.62 H (4.50-11.00) K/uL RBC 2.90 L (4.00-5.20) m/uL Hgb 8.7 L (12.0-16.0) gm/dL Hct 26.5 L (33.0-51.0) % MCV 91 (80-100) fL MCH 30 (26-34) pg MCHC 33 (32-36) gm/dL RDW Coeff of [place] 13.6 (11.5-15.5) % Plt Count 342 (140-440) K/uL Neut % (Auto) 63.7 (42.0-72.0) % Lymph % (Auto) 23.0 (20-44) % [place] % (Auto) 6.1 (0.0-11.0) % Eos % (Auto) 5.7 (0.0-7.0) % Baso % (Auto) 0.4 (0.0-3.0) % Neut # (Auto) 8.00 H (1.7-7.0) K/uL Lymph # (Auto) 2.90 (0.90-2.90) K/uL [place] # (Auto) 0.80 (0.00-0.90) K/UL Eos # (Auto) 0.70 H (0.00-0.50) K/uL Baso # (Auto) 0.10 (0.00-0.30) K/uL Abs Immat Gran (auto) 0.10 (0.00-0.30) K/uL Imm/Tot Granulo (auto) 1.1 % Sodium 137 (135-149) mmol/L Potassium 3.9 (3.6-5.1) mmol/L Chloride 106 (96-114) mmol/L Carbon Dioxide 23 (20-32) mmol/L Anion Gap 8 (7-15) mEq/L BUN 8 (5-24) mg/dL Creatinine 0.6 (0.5-1.5) mg/dL Estimated GFR 124 ml/min Glucose 86 (60-115) mg/dL Uric Acid 5.2 (2.2-8.4) mg/dL Calcium 8.3 L (8.4-10.6) mg/dL Magnesium 1.9 (1.5-2.6) mg/dL Total Bilirubin 0.2 (0.1-1.5) mg/dL Direct Bilirubin 0.0 (0.0-0.5) mg/dL AST 78 H (12-35) U/L ALT 85 H (4-35) U/L Alkaline Phosphatase 124 (40-150) U/L Total Protein 6.1 (6.0-8.3) g/dL Albumin 3.1 L (3.3-5.0) g/dL Urine Color Yellow (Yellow) Urine Appearance Clear (Clear) Urine pH 7.0 (5.0-8.5) Ur Specific [place] 1.010 (1.000-1.030) Urine Protein Negative (Negative) Urine Glucose (UA) Negative (Negative) Urine Ketones Negative (Negative) Urine Blood Negative (Negative) Urine Nitrite Negative (Negative) Urine Bilirubin Negative (Negative) Urine Urobilinogen 0.2 (0.2-1.0) Ur Leukocyte Esterase Negative (Negative) Discharge Plan Discharge Clinical Impression: Pre-eclampsia in period Patient Disposition: Admit to OB Condition: Stable
[2023-08-12 20:43] LABS: Appearance Urine Clear (Clear); Bilirubin Urine Negative (Negative); Blood Urine Negative (Negative); Color Urine Yellow (Yellow); Glucose Urine Negative (Negative); Ketones Urine Negative (Negative); Leukocyte Esterase Urine Negative (Negative); Nitrite Urine Negative (Negative); Protein Urine Negative (Negative); Urobilinogen Urine 0.2 (0.2-1.0)
[2023-08-12 20:43] LABS: Basophils Percent Auto 0.4 % (0.0-3.0); Eosinophils Percent Auto 5.7 % (0.0-7.0); Hematocrit 26.5 % (33.0-51.0); Hemoglobin* 8.7 gm/dL (12.0-16.0); Immature Granulocytes Pct Auto 1.1 %; Mean Corpuscular HGB Conc 33 gm/dL (32-36); Mean Corpuscular Hemoglobin 30 pg (26-34); Mean Corpuscular Volume 91 fL (80-100); Monocytes Percent Auto 6.1 % (0.0-11.0); Neutrophils Percent Auto 63.7 % (42.0-72.0); Platelet Count* 342 K/uL (140-440); RDW Coefficient of Variation % 13.6 % (11.5-15.5); White Blood Count* 12.62 K/uL (4.50-11.00)
[2023-08-12 20:44] LABS: Slide Review Reflex No
[2023-08-12 20:57] VITALS: BP 128/86
[2023-08-12 21:03] LABS: Albumin* 3.1 g/dL (3.3-5.0); Chloride* 106 mmol/L (96-114); Sodium* 137 mmol/L (135-149)
[2023-08-12 21:04] LABS: Potassium* 3.9 mmol/L (3.6-5.1)
[2023-08-12 21:06] LABS: Alkaline Phosphatase* 124 U/L (40-150); Anion Gap 8 mEq/L (7-15); Aspartate Amino Transferase* 78 U/L (12-35); Bilirubin Total* 0.2 mg/dL (0.1-1.5); Blood Urea Nitrogen* 8 mg/dL (5-24); Carbon Dioxide* 23 mmol/L (20-32); Creatinine* 0.6 mg/dL (0.5-1.5); Estimated Glomerular Filt Rate 124 ml/min; Glucose* 86 mg/dL (60-115); Total Protein* 6.1 g/dL (6.0-8.3)
[2023-08-12 21:07] LABS: Alanine Aminotransferase* 85 U/L (4-35); Calcium* 8.3 mg/dL (8.4-10.6); Magnesium* 1.9 mg/dL (1.5-2.6); Uric Acid* 5.2 mg/dL (2.2-8.4)
--- NOTE | 2023-08-12 22:00 | ED.NURSE ---
Report to [facility]. Pt to go to the Center - Room 210.
[2023-08-12 22:15] VITALS: BP 134/87
--- NOTE | 2023-08-12 22:28 | P.OBHP_ITS ---
OB - H&P: HPI Labor/Induction History of Present Illness Time Seen by Provider: 22:28 Date Seen: 08/12/23 Chief complaint: High BP issues, gave on 08/09 Narrative: The patient is a 32 year old seen on PPD4 following in the setting of preeclampsia with severe features. course was complicated by preeclampsia without severe features, hypothyroidism and migraines. She was discharged home yesterday. Faina presented to the emergency department after noting several elevated BPs at home, highest 150s systolic. She has associated vision changes (seeing stars, color changes), but denies headache, RUQ and epigastric pain. She initially took her BP after passing a large clot at home. Her bleeding had previously been like a moderate period, aside from this golf ball sized clot that was passed after she voided. Denies dizziness/lightheadedness, chest pain or dyspnea. She notes her recovery has otherwise been unremarkable. She is baby, working to establish milk supply. Specific Issues/Plans G 1 P 0 : Saul 1. IVF . Frozen embryo transfer 12/11/22 20 week level 2 ultrasound with echo-distant family hx of cardiac defects: echo normal. Level II: EFW 47% TVUS at MPP at 24 weeks (unclear why in records) BPP at 36 weeks: consider at 38 weeks Consider growth ultrasound at 34 weeks: 65%ile Weekly NSTs starting at 36 weeks: planning Mat21: negative 2. BMI 31.6. Hemoglobin A1c: 4.8 Recommend that she continues a daily baby aspirin to reduce risk of preeclampsia. 3. Hypothyroidism. 88mcg levothyroxine. TSH and T4 each trimester (states she is sensitive to med adjustments) 2nd trimester: 1.2. 4. Elevated BP in clinic 08/06 Labs WNL except P/c ratio 0.3 IOL tentatively for 08/08 New OB labs collected with the exception of HIV, hepatitis-B antigen, hepatitis- C antibody, as these were done 11/18/2022 at [facility]. These records are being requested.[] Requesting records from [facility] for last Pap smear, estimated to be done January 2020. [] Pap [facility] at [facility]. Flu: Completed COVID: Completed and boosted x1. Recommend bivalent booster Tdap: 06/24/2023 History of Present complications: preeclampsia and hemorrhage Type: Details (include volume & weight: Meds Home Medications and Allergies Home Medications Medication Instructions Recorded Confirmed Type cholecalciferol (vitamin D3) 25 25 mcg PO QDAY 01/27/23 08/08/23 History mcg (1,000 unit) capsule diphenhydramine HCl 25 mg capsule 25 mg PO .QD PRN 01/27/23 08/08/23 History (Allergy (diphenhydramine)) docosahexaenoic acid 200 mg mg PO 01/27/23 08/07/23 History capsule ( DHA) famotidine-Ca carb-mag hydrox 10 1 tab PO QDAY PRN 05/13/23 08/08/23 History mg-800 mg-165 mg chewable tablet (Pepcid Complete) calcium carbonate 200 mg calcium 1,000 mg PO DAILY PRN dyspepsia 08/08/23 08/08/23 History (500 mg) chewable tablet (Antacid (calcium carbonate)) Allergies Allergy/AdvReac Type Severity Reaction Status Date / Time Latex, Natural Rubber Allergy Mild Redness of Verified 08/08/23 07:37 Skin, rash OB - H&P: Exam Physical Exam: Vital signs: Temp Pulse Resp BP Pulse Ox O2 Del Method 98.2 F 87 18 128/86 97 Room Air 08/12/23 20:19 08/12/23 20:19 08/12/23 20:19 08/12/23 20:57 08/12/23 20:19 08/12/23 20:19 Narrative: General: Alert and oriented, in no acute distress Heart: Regular rate and rhythm without rubs, murmurs or gallops Lungs: Clear to posterior auscultation throughout. No wheezes, rales or crackles. Abdomen: Soft, nontender and nondistended. Specifically no right upper quadrant, epigastric or fundal tenderness. Fundus is noted at 2 below U. Lower extremities: 3+ patellar reflexes bilaterally OB - Results Labs Labs: Short CBC 08/12/23 Range/Units 20:37 WBC 12.62 H (4.50-11.00) K/uL Hgb 8.7 L (12.0-16.0) gm/dL Hct 26.5 L (33.0-51.0) % Plt Count 342 (140-440) K/uL BMP 08/12/23 20:37 Sodium 137 Potassium 3.9 Chloride 106 Carbon Dioxide 23 BUN 8 Creatinine 0.6 Glucose 86 Calcium 8.3 L Liver Function 08/12/23 Range/Units 20:37 Total Bilirubin 0.2 (0.1-1.5) mg/dL Direct Bilirubin 0.0 (0.0-0.5) mg/dL AST 78 H (12-35) U/L ALT 85 H (4-35) U/L Alkaline Phosphatase 124 (40-150) U/L Albumin 3.1 L (3.3-5.0) g/dL Urine 08/12/23 Range/Units 20:29 Urine Color Yellow (Yellow) Urine Appearance Clear (Clear) Urine pH 7.0 (5.0-8.5) Ur Specific [place] 1.010 (1.000-1.030) Urine Protein Negative (Negative) Urine Glucose (UA) Negative (Negative) OB - Problem Based A/P Additional Plan (1) Pre-eclampsia in period: Status: Acute (2) Lactating mother: Status: Acute (3) Migraines: Status: Acute Plan Ms. Rose is a 32yo admitted on PPD4 in the setting of preeclampsia with SF with worsening transaminitis. ANC complicated by preE without SF, migraines and hypothyroidism. - Admit to Obstetrics - Start magnesium sulfate for seizure prophylaxis x 24 hours - Obtain Q6H HELLP labs - Mag level PRN - Close interval BP monitoring for consideration of long acting antihypertensive regimen, though BP is well controlled without treatment at this time - Strict I/Os - Monitoring of vaginal bleeding, passage of sizable clot earlier with Hgb of 8.7 from 9.5 - Routine cares Disposition: Anticipate 48 hour admission for magnesium sulfate and BP monitoring Armond Solares MD
[2023-08-12] MEDS: MAGNESIUM IV 4 GM/100 ML PIGGYBACK IVPB (22:33)
[2023-08-12] MEDS: LACTATED RINGERS 1000 ML 1,000 ML 50 ML IV (22:33)
[2023-08-13] VITALS (7 sets, daily range): BP systolic 120–140; BP diastolic 81–97; PULSE 96–112; RESP 16–20; TEMP 36.4–36.8; O2SAT 97–99; BMI 35.0
[2023-08-13 04:28] LABS: Hemoglobin* 9.1 gm/dL (12.0-16.0); Mean Corpuscular HGB Conc 33 gm/dL (32-36); Mean Corpuscular Hemoglobin 30 pg (26-34); Mean Corpuscular Volume 91 fL (80-100); Platelet Count* 365 K/uL (140-440); Red Blood Count 3.07 m/uL (4.00-5.20); White Blood Count* 12.95 K/uL (4.50-11.00)
[2023-08-13 04:32] LABS: Slide Review Reflex No
[2023-08-13 04:44] LABS: Alanine Aminotransferase* 111 U/L (4-35); Aspartate Amino Transferase* 104 U/L (12-35); Blood Urea Nitrogen* 5 mg/dL (5-24); Creatinine* 0.6 mg/dL (0.5-1.5); Estimated Glomerular Filt Rate 124 ml/min
--- NOTE | 2023-08-13 08:36 | PM.OBPNVD1 ---
OB - PN:Subj Subjective Date Seen: 08/13/23 Interval history: Faina is a 32-year-old G1 now P 1-0-0-1 woman who is day 5 today after normal spontaneous vaginal delivery, and hospital day 2 after readmission for preeclampsia with severe features. She has been maintained on magnesium sulfate for seizure prophylaxis since 11:00 p.m. last night. Narrative: Faina feels a little bit woozy and lightheaded upon standing. She has a little bit of a headache. She denies any right upper quadrant pain. Overall, she is just emotional and sad to be back here. She has started pumping, and plans to do this during magnesium sulfate infusion. OB - PN: Obj Exam Physical Exam: Vital signs: Temp Pulse Resp BP Pulse Ox O2 Del Method 98.3 F 110 H 16 126/87 98 Room Air 08/13/23 04:49 08/13/23 04:49 08/13/23 04:49 08/13/23 04:49 08/13/23 04:49 08/13/23 04:49 Last elevated blood pressure was 147/88 on 08/12/2023 Fluid balance is -1570 mL since admission Narrative: General: Pleasant, no acute distress Heart: Regular rate and rhythm, no murmur or gallop Lungs: Clear to auscultation bilaterally Abdomen: Soft, nontender, fundus well below umbilicus Lower extremities: Trace edema of bilateral feet, compression stockings in place OB - PN: Obj Data Labs Labs: Laboratory Results - last 24 hr 08/12/23 08/12/23 08/13/23 20:29 20:37 04:20 WBC 12.62 H 12.95 H RBC 2.90 L 3.07 L Hgb 8.7 L 9.1 L Hct 26.5 L 28.0 L MCV 91 91 MCH 30 30 MCHC 33 33 RDW Coeff of Ruddy 13.6 Plt Count 342 365 Neut % (Auto) 63.7 Lymph % (Auto) 23.0 [place] % (Auto) 6.1 Eos % (Auto) 5.7 Baso % (Auto) 0.4 Neut # (Auto) 8.00 H Lymph # (Auto) 2.90 [place] # (Auto) 0.80 Eos # (Auto) 0.70 H Baso # (Auto) 0.10 Abs Immat Gran (auto) 0.10 Imm/Tot Granulo (auto) 1.1 Sodium 137 Potassium 3.9 Chloride 106 Carbon Dioxide 23 Anion Gap 8 BUN 8 5 Creatinine 0.6 0.6 Estimated GFR 124 124 Glucose 86 Uric Acid 5.2 Calcium 8.3 L Magnesium 1.9 Total Bilirubin 0.2 Direct Bilirubin 0.0 AST 78 H 104 H ALT 85 H 111 H Alkaline Phosphatase 124 Total Protein 6.1 Albumin 3.1 L Urine Color Yellow Urine Appearance Clear Urine pH 7.0 Ur Specific [place] 1.010 Urine Protein Negative Urine Glucose (UA) Negative Urine Ketones Negative Urine Blood Negative Urine Nitrite Negative Urine Bilirubin Negative Urine Urobilinogen 0.2 Ur Leukocyte Esterase Negative OB - PN: A/P Delivery Assessment and Plan (1) Pre-eclampsia in period: Status: Acute Assessment and Plan: Preeclampsia with severe features. Continue magnesium sulfate for 24 hours. Continue HELLP labs every 6 hours. Given that her blood pressures are mildly elevated, I will begin labetalol 200 mg b.i.d.. (2) Lactating mother: Status: Acute Plan Comments: Anticipate discharge tomorrow if blood pressure is well controlled. She will need close outpatient follow-up of blood pressures.
[2023-08-13] MEDS: FERROUS SULFATE 325 MG TABLET PO (09:12)
[2023-08-13] MEDS: LABETALOL HCL 100 MG TABLET 200 MG PO ×2 (09:12→20:56)
[2023-08-13 10:44] LABS: Hemoglobin* 10.1 gm/dL (12.0-16.0); Mean Corpuscular HGB Conc 33 gm/dL (32-36); Mean Corpuscular Hemoglobin 30 pg (26-34); Mean Corpuscular Volume 93 fL (80-100); Platelet Count* 280 K/uL (140-440); Red Blood Count 3.35 m/uL (4.00-5.20); White Blood Count* 12.58 K/uL (4.50-11.00)
[2023-08-13 10:45] LABS: Alanine Aminotransferase* 123 U/L (4-35); Aspartate Amino Transferase* 135 U/L (12-35); Creatinine* 0.6 mg/dL (0.5-1.5); Estimated Glomerular Filt Rate 124 ml/min
[2023-08-13 10:46] LABS: Blood Urea Nitrogen* 6 mg/dL (5-24)
[2023-08-13 11:05] LABS: Slide Review Reflex Yes
[2023-08-13 11:07] LABS: Slide Review Acceptable Review (Acceptable)
[2023-08-13] MEDS: LACTATED RINGERS 1000 ML 1,000 ML 50 ML IV (12:48)
[2023-08-13] MEDS: IBUPROFEN 600 MG TABLET PO (12:55)
[2023-08-13 16:25] LABS: Hematocrit 26.4 % (33.0-51.0); Hemoglobin* 8.8 gm/dL (12.0-16.0); Mean Corpuscular HGB Conc 33 gm/dL (32-36); Mean Corpuscular Hemoglobin 30 pg (26-34); Mean Corpuscular Volume 91 fL (80-100); Platelet Count* 392 K/uL (140-440); Red Blood Count 2.89 m/uL (4.00-5.20); White Blood Count* 13.45 K/uL (4.50-11.00)
[2023-08-13 16:35] LABS: Slide Review Reflex No
[2023-08-13 16:46] LABS: Creatinine* 0.6 mg/dL (0.5-1.5); Est. Creatinine Clearance* 123.37; Estimated Glomerular Filt Rate 124 ml/min
[2023-08-13 16:47] LABS: Alanine Aminotransferase* 116 U/L (4-35); Aspartate Amino Transferase* 114 U/L (12-35); Blood Urea Nitrogen* 7 mg/dL (5-24)
[2023-08-13 23:04] LABS: Aspartate Amino Transferase* 86 U/L (12-35); Blood Urea Nitrogen* 7 mg/dL (5-24)
[2023-08-13 23:08] LABS: Hematocrit 27.3 % (33.0-51.0); Hemoglobin* 8.8 gm/dL (12.0-16.0); Mean Corpuscular HGB Conc 32 gm/dL (32-36); Mean Corpuscular Hemoglobin 30 pg (26-34); Mean Corpuscular Volume 94 fL (80-100); Platelet Count* 385 K/uL (140-440); Red Blood Count 2.92 m/uL (4.00-5.20)
[2023-08-13 23:10] LABS: Slide Review Reflex No
[2023-08-13 23:24] LABS: Alanine Aminotransferase* 113 U/L (4-35); Creatinine* 0.6 mg/dL (0.5-1.5); Est. Creatinine Clearance* 123.37; Estimated Glomerular Filt Rate 124 ml/min
[2023-08-14] VITALS (7 sets, daily range): BP systolic 105–119; BP diastolic 68–81; PULSE 74–97; RESP 14–20; TEMP 36.6–36.9; O2SAT 97–99
[2023-08-14 04:44] LABS: Alanine Aminotransferase* 100 U/L (4-35); Creatinine* 0.6 mg/dL (0.5-1.5); Est. Creatinine Clearance* 123.37; Estimated Glomerular Filt Rate 124 ml/min
[2023-08-14] MEDS: LABETALOL HCL 100 MG TABLET 200 MG PO ×2 (08:34→21:16)
--- NOTE | 2023-08-14 09:06 | PM.OBPNVD1 ---
OB - PN:Subj Subjective Date Seen: 08/14/23 Interval history: Faina is a 32-year-old G1 now P 1-0-0-1 woman who is day 5 today after normal spontaneous vaginal delivery, and hospital day 2 after readmission for preeclampsia with severe features. She has now completed magnesium sulfate infusion for 24 hours, discontinued on 08/13/23 at 11pm. Patient today states that she is feeling much better. Denies headaches, visual changes or pain in her upper abdomen. Blood pressures have remained normal with labetalol 200mg BID. She is and doing well. No SOB, No lightheadedness with ambulation, normal bleeding, no pelvic pain or abnormal vaginal discharge. OB - PN: Obj Exam Physical Exam: Vital signs: Temp Pulse Resp BP Pulse Ox O2 Del Method 98.2 F 83 20 119/80 99 Room Air 08/14/23 08:35 08/14/23 08:35 08/14/23 08:35 08/14/23 08:35 08/14/23 08:35 08/14/23 08:35 OB - PN: Obj Data Labs Labs: Laboratory Results - last 24 hr 08/13/23 08/13/23 08/13/23 10:18 16:18 22:40 WBC 12.58 H 13.45 H 11.20 H RBC 3.35 L 2.89 L 2.92 L Hgb 10.1 L 8.8 L 8.8 L Hct 31.0 L 26.4 L 27.3 L MCV 93 91 94 MCH 30 30 30 MCHC 33 33 32 Plt Count 280 392 385 Diff Slide Review Acceptable Review BUN 6 7 7 Creatinine 0.6 0.6 0.6 Estimated Creat Clear 123.37 123.37 Estimated GFR 124 124 124 AST 135 H 114 H 86 H ALT 123 H 116 H 113 H 08/14/23 04:23 WBC RBC Hgb Hct MCV MCH MCHC Plt Count Diff Slide Review BUN Creatinine 0.6 Estimated Creat Clear 123.37 Estimated GFR 124 AST ALT 100 H OB - PN: A/P Delivery Assessment and Plan (1) Pre-eclampsia in period: Status: Acute Assessment and Plan: Recommended continued observation until at least 24 hours after completion of magnesium sulfate infusion. To continue blood pressure monitoring, titration of antihypertensive medication. Will order repeat liver enzymes tonight, make sure that they continue down trending. If findings continue to be reassuring, discussed discharge home tomorrow morning. Patient is in agreement with plan. (2) Lactating mother: Status: Acute Plan Plan: routine care
[2023-08-14 20:13] LABS: Aspartate Amino Transferase* 72 U/L (12-35)
[2023-08-14 20:14] LABS: Alanine Aminotransferase* 97 U/L (4-35)
[2023-08-15 04:00] VITALS: BP 113/69; PULSE 88; RESP 16; TEMP 36.8; O2SAT 98
[2023-08-15 07:20] VITALS: BP 115/76; PULSE 88; RESP 16; TEMP 36.8; O2SAT 98
[2023-08-15] MEDS: FERROUS SULFATE 325 MG TABLET PO (08:42)
[2023-08-15] MEDS: LABETALOL HCL 100 MG TABLET 200 MG PO (08:42)
--- NOTE | 2023-08-15 08:53 | PM.OBDSVD1 ---
DS: Providers Provider Time Seen by Provider: 08:53 Date Seen: 08/15/23 Date of admission: 08/12/23 22:03 Primary care physician: Roya Branham MD Admitting Clinician: Nida Solares MD Attending Physician on discharge: Nida Solares MD DS: Diagnosis Discharge Diagnosis (1) Pre-eclampsia in period: Status: Acute (2) Lactating mother: Status: Acute Exam Narrative: Exam Narrative: General: No acute distress Psych: Alert and oriented x 3, full affect HEENT: Normocephalic, atraumatic Abdomen: Soft, no tenderness, fundus is 2 below U. Const: Vital Signs, click to edit/add: Vital Signs - 24 hr 08/14/23 12:24 08/14/23 16:32 08/14/23 19:28 Temperature 98.1 F 98.1 F 98.5 F Pulse Rate [Pulse Oximeter] 97 74 96 Respiratory Rate 20 20 16 Blood Pressure [Le ft Arm] 119/79 115/81 114/75 Pulse Oximetry 97 99 98 Oxygen Delivery Me thod Room Air Room Air Room Air 08/14/23 23:37 08/15/23 04:00 08/15/23 07:20 Temperature 98.4 F 98.2 F 98.2 F Pulse Rate [Pulse Oximeter] 90 88 88 Respiratory Rate 14 16 16 Blood Pressure [Le ft Arm] 105/68 113/69 115/76 Pulse Oximetry 98 98 98 Oxygen Delivery Me thod Room Air Room Air Room Air OB - DS: Summary Hospital Course Hospital Course: The patient is a 32 year old G 1 P 1 seen on PPD7 from [facility]. She was readmitted the evening of PPD4 in the setting of preeclampsia with severe features with worsening transaminitis. She received a course of magnesium sulfate for seizure prophylaxis for 24 hours. Serial labs were trended, with improvement of her transaminitis with AST of 72 and ALT of 97 on last check from peak of 135 and 123 respectively. She has initiated on labetalol 200 mg b.i.d. with excellent blood pressure control, normotensive overnight. Patient remains asymptomatic and is feeling well today. She is meeting all appropriate discharge milestones. Plan to discharge on labetalol 200 mg b.i.d. with home blood pressure checks. Next visit in 1 week. Return precautions reinforced. Time Spent with Patient Time attestation: Total time spent providing and/or coordinating discharge services: Discharge Plan Discharge Disposition: Home, Self-Care Date of Admission: 08/12/23 22:03 Attending Provider on Discharge: Nida Solares Primary Care Provider: Roya Branham Condition: Stable Anticipated Discharge Date/Time: 08/15/23 08:58 Discharge Medications: New labetalol 100 mg Tablet 200 mg PO BID Qty: 60 1RF Continued cholecalciferol (vitamin D3) 25 mcg (1,000 unit) capsule 25 mcg PO QDAY DHA 200 mg capsule 200 mg PO DAILY Pepcid Complete 10-800-165 mg tablet,chewable 1 tab PO QDAY PRN ferrous sulfate 325 mg (65 mg iron) Tablet 325 mg PO Q48H Qty: 90 0RF docusate sodium 100 mg Capsule 100 mg PO DAILY Qty: 90 0RF ibuprofen 600 mg Tablet 600 mg PO Q6H PRNQty: 60 0RF levothyroxine 88 mcg tablet 88 mcg PO DAILY Qty: 90 1RF Discharge Orders: Discharge Order (Routine); Ordered 08/15/23 Ordered By: Nida Solares Patient Education: Preeclampsia and Eclampsia After Delivery (GEN) Activity Level: Activity as Tolerated Discharge Diet: Regular Follow Up Appointments: Roya Branham MD [Primary Care Provider] - Forms: [employer] Info Instructions Discharge Comments: Follow-up in 1 week for 2 week check with blood pressure check.
--- NOTE | 2023-08-15 10:19 | PC.NURSE ---
Patient given discharge papers and instructions. Education for pre-eclampsia reenforced, and all questions answered. Patient vitally stable and asymptomatic at time of discharge.
== END 2023-08-15 10:19 | disposition home or self-care (01) | DRG 776 ==
LOC: ED 21:54 → OB 08-13 12:04
PROVIDERS: Obstetrics & Gynecology; Admitting Provider Obstetrics & Gynecology; Emergency Provider Family Medicine; PCP Family Medicine; Visit Provider Obstetrics & Gynecology
DX: O14.15 Severe pre-eclampsia, complicating the puerperium (principal); G43.909 Migraine, unspecified, not intractable, without status migrainosus; O99.285 Endocrine, nutritional and metabolic diseases complicating the puerperium; E03.9 Hypothyroidism, unspecified
CPT/HCPCS: 36415; 80048; 80076; 81003; 82565; 83735; 84450; 84460; 84520; 84550; 85025; 85027; 99284; 99285; A9270; J3475; J7120

== ENCOUNTER 2023-09-21 08:17 | Outpatient (CLI) | payer OTHER, SELFPAY | END 2023-09-21 08:18 | disposition home or self-care (01) | LOC: NFLDREF 08:17 | PROVIDERS: PCP Family Medicine; Visit Provider Advanced Practice Midwife | DX: Z39.2 Encounter for routine postpartum follow-up (principal); E03.9 Hypothyroidism, unspecified | CPT/HCPCS: 84443 ==

== ENCOUNTER 2023-10-06 08:52 | Outpatient (CLI) | payer OTHER, SELFPAY | END 2023-10-06 08:53 | disposition home or self-care (01) | PROVIDERS: PCP Family Medicine | DX: Z52.89 Donor of other specified organs or tissues (principal) | CPT/HCPCS: 36415; 99001 ==

== ENCOUNTER 2024-03-16 08:29 | Outpatient (CLI) | payer OTHER, SELFPAY | END 2024-03-16 08:30 | disposition home or self-care (01) | PROVIDERS: PCP Family Medicine; Visit Provider Family Medicine | DX: E03.9 Hypothyroidism, unspecified (principal); R79.89 Other specified abnormal findings of blood chemistry; Z86.2 Personal history of diseases of the blood and blood-forming organs and certain disorders involving the immune mechanism; Z13.0 Encounter for screening for diseases of the blood and blood-forming organs and certain disorders involving the immune mechanism; Z13.220 Encounter for screening for lipoid disorders | CPT/HCPCS: 80053; 80061; 82728; 84443 ==

== ENCOUNTER 2024-09-05 08:20 | Emergency (ER) | payer OTHER, SELFPAY ==
[2024-09-05] VITALS (11 sets, daily range): BP systolic 104–134; BP diastolic 85–102; PULSE 114–137; RESP 16; TEMP 37; O2SAT 95–99
--- NOTE | 2024-09-05 08:41 | ED_ITS ---
HPI - General Adult General Chief complaint: Vaginal Bleeding Stated complaint: Heavy vaginal bleeding, dizzy, nausea Time Seen by Provider: 09/05/24 08:37 History of Present Illness HPI narrative: Patient has PCOS and has irregular periods. Had a period 3 weeks ago. Started another one yesterday. Woke up this morning soaking through her super tampon. Soaked through a pad and 2 super tampons after that. Feels dizzy and nauseous. They are actively trying to get . 33-year-old woman presenting to the emergency department with concern of heavy vaginal bleeding. Did begin to bleed yesterday evening but this morning now over the last hour has soaked through 2 tampons. Some lower abdominal cramping but not significant abdominal pain. She was feeling lightheaded when up. Improved now that she is laying around. Was a little nauseated as well. She has been tearful part of that is due to difficulties with the last that is remembering. Looks to have about a 2-year-old here. History of preeclampsia and PCOS. LMP was 08/13/2024. This would be about a week early for regular menses. Related Data Home Medications ?Medication ?Instructions ?Recorded ?Confirmed cholecalciferol (vitamin D3) 25 25 mcg PO QDAY 01/27/23 03/16/24 mcg (1,000 unit) capsule docosahexaenoic acid 200 mg 200 mg PO DAILY 01/27/23 09/05/24 capsule ( DHA) aspirin 81 mg tablet,delayed 81 mg PO QDAY 03/16/24 03/16/24 release (Adult Low Dose Aspirin) diphenhydramine HCl 25 mg capsule 25 mg PO QHS PRN 03/16/24 09/05/24 (Benadryl) magnesium 250 mg tablet 250 mg PO DAILY 09/05/24 09/05/24 Previous Rx's ?Medication ?Instructions ?Recorded levothyroxine 88 mcg tablet 88 mcg PO DAILY #90 tabs 08/25/24 medroxyprogesterone 10 mg tablet See Rx Instructions .Route 09/05/24 (Provera) .COMPLEX #45 tabs Allergies Allergy/AdvReac Type Severity Reaction Status Date / Time Latex, Natural Rubber Allergy Mild Redness of Verified 09/05/24 08:35 Skin, rash Review of Systems Status of ROS: Reports: 6 or more systems reviewed and unremarkable except as noted in History and below PFSH PFSH Medical History (Updated 09/05/24 @ 12:08 by Jason Lombardo MD) Health care directive on file ?Z78.9 - Other specified health status (ICD-10) Pre-eclampsia in period ?O14.95 - Unspecified pre-eclampsia, complicating the puerperium (ICD-10) Preeclampsia ?O14.90 - Unspecified pre-eclampsia, unspecified trimester (ICD-10) NVD (normal vaginal delivery) ?O80 - Encounter for full-term uncomplicated delivery (ICD-10) Surgical History In vitro fertilization (05/2022) ?Z31.83 - Encounter for assisted reproductive fertility procedure cycle (ICD- 10) [place] teeth extracted (2009) ?K08.409 - Partial loss of teeth, unspecified cause, unspecified class (ICD- 10) Family History (Updated 03/16/24 @ 08:44 by Maryuri Campbell MD) Aunt Breast cancer, Onset Age: 40 Seizure disorder Uncle Pancreatic cancer Uncle Brain cancer Social History Narrative: , 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[employer], 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 [place] No regular exercise but will be starting Lifetime nonsmoker Rare alcohol use What is your current living situation?: I presently have a place to live Problems where you live: no known problems In the past 12 months, utilities in danger of being shut off: no In past 12 months, lack of transportation kept you from medical appts, meetings, work, or getting things needed for daily living: no In the past 12 mos, have been you worried that your food would run out before you had money to buy more?: never true In the past 12 mos, the food you bought just didn't last and you didn't have money to buy more?: never true Smoking Status: Never smoker Do you use any of these nicotine containing products: None Second hand tobacco smoke exposure: No How often do you have a drink containing alcohol: never AUDIT-C Alcohol total score: 0 Non-prescribed substance use: denies use How often does anyone, including family, friends and others, physically hurt you : never How often does anyone, including family, friends and others, insult or talk down to you: never How often does anyone, including family, friends and others, threaten you with harm: never How often does anyone, including family, friends and others, scream or curse at you: never Little interest or pleasure in doing things: not at all Feeling down, depressed, or hopeless: not at all Exam Narrative: Exam Narrative: Pleasant. NAD but tearful. Skin is warm and dry. No lower extremity edema. Lungs appear to be clear. Heart rate is tachycardic. Abdomen is soft and little tender in suprapubic area. deferred Const: Vital Signs, click to edit/add: Vital Signs - 24 hr 09/05/24 10:11 09/05/24 10:15 09/05/24 10:30 Pulse Rate 118 H 130 H 114 H Blood Pressure Pulse Oximetry 98 98 99 09/05/24 10:45 09/05/24 10:47 09/05/24 11:00 Pulse Rate 123 H 115 H 119 H Blood Pressure 127/91 H Pulse Oximetry 98 98 98 09/05/24 11:15 09/05/24 11:16 09/05/24 11:23 Pulse Rate 122 H 126 H 119 H Blood Pressure 104/88 108/85 Pulse Oximetry 97 98 95 09/05/24 11:30 Pulse Rate 116 H Blood Pressure Pulse Oximetry 97 Documenting provider has reviewed patient's vital signs: yes Course Vital Signs Vital signs: Initial Vital Signs Temperature 98.6 F 09/05/24 08:36 Temperature Source Temporal Artery Scan 09/05/24 08:36 Pulse Rate 137 H 09/05/24 08:36 Pulse Rhythm Regular 09/05/24 08:36 Pulse Strength 3+ Normal 09/05/24 08:36 Respiratory Rate 16 09/05/24 08:36 Blood Pressure 134/102 H 09/05/24 08:36 Blood Pressure Mean 112 H 09/05/24 08:36 Blood Pressure Position Sitting 09/05/24 08:36 Pulse Oximetry 99 09/05/24 08:36 Oxygen Delivery Method Room Air 09/05/24 08:36 Vital Signs Temperature 98.6 F 09/05/24 08:36 Pulse Rate 137 H 09/05/24 08:36 Respiratory Rate 16 09/05/24 08:36 Blood Pressure 134/102 H 09/05/24 08:36 Pulse Oximetry 99 09/05/24 08:36 Oxygen Delivery Method Room Air 09/05/24 08:36 Temperature 98.6 F 09/05/24 08:36 Pulse Rate 116 H 09/05/24 11:30 Respiratory Rate 16 09/05/24 08:36 Blood Pressure 108/85 09/05/24 11:23 Pulse Oximetry 97 09/05/24 11:30 Oxygen Delivery Method Room Air 09/05/24 08:36 Medications Administered Medications: Discontinued Medications Generic Name Dose Route Start Last Admin Trade Name Zeferino PRN Reason Stop Dose Admin Tranexamic Acid 1,000 mg/ 110 mls @ 440 mls/hr 09/05/24 10:31 09/05/24 11:17 Sodium Chloride IVPB 09/05/24 10:32 Infused ONCE ONE Infusion Sodium Chloride 500 mls @ 500 mls/hr 09/05/24 11:15 09/05/24 11:21 0.9 % Sodium Chloride 500 Ml IV 09/05/24 12:14 500 mls/hr .Q1H ONE Administration Ondansetron HCl 4 mg 09/05/24 11:15 09/05/24 11:21 Ondansetron 2 Mg/Ml Inj IVP 09/05/24 11:16 4 mg ONCE ONE Administration Medical Decision Making MDM Narrative Medical decision making narrative: Will need serial hemoglobin. Evaluate for potential and related bleeding. Concern of initial tachycardia. This appears to be isolated in vitals. She does note a history of white coat syndrome and is typically tachycardic she says. Removal of the tampon during bathrooming here in the emergency department resulted in a good deal of fresh bleeding she notes. Did discuss this case with OB on-call. Recommending for Provera taper pending improvement in bleeding here in the emergency department. Will be given a dose of TXA. Did vomit during time in the emergency department. Did receive bolus of normal saline. Vitals stable still lightly tachycardic. Repeat hemoglobin at a little over 2 hours unchanged. Did do a speculum exam at this time and did not appear to have active bleeding at that time. testing was negative. White count a little elevated. Unclear what this represents. Is absent of significant abdominal pain. Might be inflammatory related to endometrial inflammation/bleeding. With improvement in symptoms can be safely discharged with close monitoring. Per discussion with OBGYN will defer ultrasound to outpatient in anticipation of outpatient visit. Medical Records Medical records reviewed: Yes I reviewed the patient's medical records Lab Data Lab results reviewed: Yes I reviewed the patient's lab results Labs: Lab Results 09/05/24 09/05/24 09/05/24 Range/Units 08:55 09:40 11:29 WBC 9.13 13.43 H (4.50-11.00) K/uL RBC 5.01 5.04 (4.00-5.20) m/uL Hgb 14.6 14.6 (12.0-16.0) gm/dL Hct 44.0 44.0 (33.0-51.0) % MCV 88 87 (80-100) fL MCH 29 29 (26-34) pg MCHC 33 33 (32-36) gm/dL RDW Coeff of Ruddy 12.0 11.8 (11.5-15.5) % Plt Count 252 295 (140-440) K/uL Neut % (Auto) 74.4 H 82.6 H (42.0-72.0) % Lymph % (Auto) 17.4 L 11.2 L (20-44) % [place] % (Auto) 6.4 5.6 (0.0-11.0) % Eos % (Auto) 1.5 0.2 (0.0-7.0) % Baso % (Auto) 0.2 0.3 (0.0-3.0) % Neut # (Auto) 6.80 11.10 H (1.7-7.0) K/uL Lymph # (Auto) 1.60 1.50 (0.90-2.90) K/uL [place] # (Auto) 0.60 0.80 (0.00-0.90) K/UL Eos # (Auto) 0.14 0.00 (0.00-0.50) K/uL Baso # (Auto) 0.02 0.00 (0.00-0.30) K/uL Abs Immat Gran (auto) 0.01 0.00 (0.00-0.30) K/uL Imm/Tot Granulo (auto) 0.1 0.1 % Sodium 137 (135-149) mmol/L Potassium 3.5 L (3.6-5.1) mmol/L Chloride 101 (96-114) mmol/L Carbon Dioxide 22 (20-32) mmol/L Anion Gap 14 (7-15) mEq/L BUN 7 (5-24) mg/dL Creatinine 0.7 (0.5-1.5) mg/dL Estimated Creat Clear 104.78 Estimated GFR 119 ml/min Glucose 132 H (60-115) mg/dL Calcium 9.0 (8.4-10.6) mg/dL HCG, Quant < 2.39 mIU/mL Urine HCG, Qual Negative (Negative) Blood Type A Positive Antibody Screen NEGATIVE Discharge Plan Discharge Clinical Impression: Menorrhagia Additional Instructions: Stay well-hydrated. Recommendations are to take Provera 10 mg 3 times a day for 7 days; then 10 mg 2 times daily for 7 days; then 10 mg daily until seen in clinic follow-up. Please call today or tomorrow for a follow-up appointment in a couple of weeks with [facility]. They may also want to order an ultrasound before than. Return otherwise for breakthrough or recurrent bleeding set that you are soaking through to heavy pads an hour for 2 consecutive hours, associated worsening symptoms of lightheadedness or shortness of breath. Prescriptions: New medroxyprogesterone [Provera] 10 mg tablet See Rx Instructions .ROUTE .COMPLEX Qty: 45 0RF Rx Instructions: 10 mg t.i.d. x7 days; 10 mg b.i.d. for 7 days; 10 mg daily until follow-up No Action cholecalciferol (vitamin D3) 25 mcg (1,000 unit) capsule 25 mcg PO QDAY DHA 200 mg capsule 200 mg PO DAILY aspirin [Adult Low Dose Aspirin] 81 mg tablet,delayed release (DR/EC) 81 mg PO QDAY diphenhydramine HCl [Benadryl] 25 mg capsule 25 mg PO QHS PRN magnesium 250 mg tablet 250 mg PO DAILY levothyroxine 88 mcg tablet 88 mcg PO DAILY Qty: 90 0RF Follow Up/Referrals: Maryuri Campbell MD [Primary Care Provider] - Stand Alone Forms: [employer] Info Instructions
[2024-09-05 09:02] LABS: Basophils Absolute Auto 0.02 K/uL (0.00-0.30); Basophils Percent Auto 0.2 % (0.0-3.0); Eosinophils Absolute Auto 0.14 K/uL (0.00-0.50); Eosinophils Percent Auto 1.5 % (0.0-7.0); Hemoglobin* 14.6 gm/dL (12.0-16.0); Immature Granulocytes Abs Auto 0.01 K/uL (0.00-0.30); Immature Granulocytes Pct Auto 0.1 %; Lymphocytes Percent Auto 17.4 % (20-44); Mean Corpuscular HGB Conc 33 gm/dL (32-36); Mean Corpuscular Hemoglobin 29 pg (26-34); Mean Corpuscular Volume 88 fL (80-100); Monocytes Percent Auto 6.4 % (0.0-11.0); Neutrophils Percent Auto 74.4 % (42.0-72.0); Platelet Count* 252 K/uL (140-440); Red Blood Count 5.01 m/uL (4.00-5.20); White Blood Count* 9.13 K/uL (4.50-11.00)
[2024-09-05 09:16] LABS: Slide Review Reflex No
[2024-09-05 09:25] LABS: Chloride* 101 mmol/L (96-114)
[2024-09-05 09:26] LABS: Potassium* 3.5 mmol/L (3.6-5.1); Sodium* 137 mmol/L (135-149)
[2024-09-05 09:28] LABS: Creatinine* 0.7 mg/dL (0.5-1.5); Est. Creatinine Clearance* 104.78; Estimated Glomerular Filt Rate 119 ml/min
[2024-09-05 09:29] LABS: Anion Gap 14 mEq/L (7-15); Blood Urea Nitrogen* 7 mg/dL (5-24); Carbon Dioxide* 22 mmol/L (20-32); Glucose* 132 mg/dL (60-115)
[2024-09-05 09:48] LABS: HCG Quantitative* < 2.39 mIU/mL
[2024-09-05 09:59] LABS: Ur HCG Qualitative* Negative (Negative)
[2024-09-05] MEDS: TRANEXAMIC ACID 1,000 MG in 0.9 % SODIUM CHLORIDE 100 ml 100 ML 440 MG IVPB (10:47)
[2024-09-05] MEDS: 0.9 % SODIUM CHLORIDE 500 ML 500 ML IV (11:21)
[2024-09-05] MEDS: ONDANSETRON 2 MG/ML inj 4 MG IVP (11:21)
[2024-09-05 11:44] LABS: Basophils Percent Auto 0.3 % (0.0-3.0); Eosinophils Percent Auto 0.2 % (0.0-7.0); Hemoglobin* 14.6 gm/dL (12.0-16.0); Immature Granulocytes Pct Auto 0.1 %; Lymphocytes Percent Auto 11.2 % (20-44); Mean Corpuscular HGB Conc 33 gm/dL (32-36); Mean Corpuscular Hemoglobin 29 pg (26-34); Mean Corpuscular Volume 87 fL (80-100); Monocytes Percent Auto 5.6 % (0.0-11.0); Neutrophils Percent Auto 82.6 % (42.0-72.0); Platelet Count* 295 K/uL (140-440); RDW Coefficient of Variation % 11.8 % (11.5-15.5); Red Blood Count 5.04 m/uL (4.00-5.20); White Blood Count* 13.43 K/uL (4.50-11.00)
[2024-09-05 11:48] LABS: Slide Review Reflex No
== END 2024-09-05 12:32 | disposition home or self-care (01) ==
PROVIDERS: Emergency Provider Family Medicine; PCP Family Medicine
DX: N92.0 Excessive and frequent menstruation with regular cycle (principal)
CPT/HCPCS: 36415; 80048; 81025; 84702; 85025; 86850; 86900; 86901; 96365; 96375; 99284; J2405; J7030

== ENCOUNTER 2024-09-06 09:24 | Emergency (ER) | payer OTHER, SELFPAY ==
[2024-09-06 09:34] VITALS: BP 148/92; PULSE 125; RESP 18; TEMP 36.9; O2SAT 98
[2024-09-06 10:51] LABS: Basophils Absolute Auto 0.02 K/uL (0.00-0.30); Basophils Percent Auto 0.2 % (0.0-3.0); Eosinophils Absolute Auto 0.02 K/uL (0.00-0.50); Eosinophils Percent Auto 0.2 % (0.0-7.0); Hematocrit 43.1 % (33.0-51.0); Hemoglobin* 14.4 gm/dL (12.0-16.0); Immature Granulocytes Abs Auto 0.01 K/uL (0.00-0.30); Immature Granulocytes Pct Auto 0.1 %; Mean Corpuscular HGB Conc 33 gm/dL (32-36); Mean Corpuscular Hemoglobin 29 pg (26-34); Mean Corpuscular Volume 87 fL (80-100); Neutrophils Percent Auto 86.5 % (42.0-72.0); Platelet Count* 264 K/uL (140-440); RDW Coefficient of Variation % 11.9 % (11.5-15.5); Red Blood Count 4.93 m/uL (4.00-5.20); White Blood Count* 9.99 K/uL (4.50-11.00)
[2024-09-06] MEDS: 0.9 % SODIUM CHLORIDE 500 ML 500 ML IV (10:59)
[2024-09-06 11:00] LABS: Slide Review Reflex No
[2024-09-06 11:12] LABS: Chloride* 103 mmol/L (96-114); Potassium* 3.8 mmol/L (3.6-5.1); Sodium* 138 mmol/L (135-149)
[2024-09-06 11:15] LABS: Anion Gap 12 mEq/L (7-15); Carbon Dioxide* 23 mmol/L (20-32); Creatinine* 0.5 mg/dL (0.5-1.5); Estimated Glomerular Filt Rate 129 ml/min
[2024-09-06 11:16] LABS: Blood Urea Nitrogen* 4 mg/dL (5-24); Calcium* 9.5 mg/dL (8.4-10.6); Glucose* 100 mg/dL (60-115); Magnesium* 2.4 mg/dL (1.5-2.6)
--- NOTE | 2024-09-06 12:16 | ED_ITS ---
HPI - General Adult General Date Seen: 09/06/24 Chief complaint: Vaginal Bleeding Stated complaint: Vaginal bleeding, nausea, dizzy, seen yesterday Time Seen by Provider: 09/06/24 09:57 Source: patient, RN notes reviewed and old records reviewed Mode of arrival: ambulatory Limitations: no limitations History of Present Illness HPI narrative: Patient is a 33-year-old woman with a history of polycystic ovarian syndrome here for recheck of vaginal bleeding. She was here yesterday morning after having developed irregular and heavy vaginal bleeding without suspicion of . Was having some abdominal cramping, yesterday had 2 hemoglobins checked which were stable at 14 .5, was discharged on progestin 10 mg t.i.d.. She comes back today because she is continuing to have bleeding although she says it is significantly better than it was yesterday. She is using regular tampon, she is not bleeding through it but after an hours noticing that the string has blood on it so she is changing it. Her heart rate was significantly elevated yesterday in the 130s, is she is tachycardic again today, not entirely clear what the cause for this is given that her hemoglobin was normal yesterday. She is not having chest pain or difficulty breathing. She does note a history of thyroid disease. Related Data Home Medications ?Medication ?Instructions ?Recorded ?Confirmed cholecalciferol (vitamin D3) 25 25 mcg PO QDAY 01/27/23 03/16/24 mcg (1,000 unit) capsule docosahexaenoic acid 200 mg 200 mg PO DAILY 01/27/23 09/05/24 capsule ( DHA) aspirin 81 mg tablet,delayed 81 mg PO QDAY 03/16/24 03/16/24 release (Adult Low Dose Aspirin) diphenhydramine HCl 25 mg capsule 25 mg PO QHS PRN 03/16/24 09/05/24 (Benadryl) magnesium 250 mg tablet 250 mg PO DAILY 09/05/24 09/05/24 Previous Rx's ?Medication ?Instructions ?Recorded levothyroxine 88 mcg tablet 88 mcg PO DAILY #90 tabs 08/25/24 medroxyprogesterone 10 mg tablet See Rx Instructions .Route 09/05/24 (Provera) .COMPLEX #45 tabs Allergies Allergy/AdvReac Type Severity Reaction Status Date / Time Latex, Natural Rubber Allergy Mild Redness of Verified 09/05/24 08:35 Skin, rash Review of Systems Status of ROS: Reports: 10 or more systems reviewed and unremarkable except as noted in History and below [facility] Medical History Health care directive on file ?Z78.9 - Other specified health status (ICD-10) Pre-eclampsia in period ?O14.95 - Unspecified pre-eclampsia, complicating the puerperium (ICD-10) Preeclampsia ?O14.90 - Unspecified pre-eclampsia, unspecified trimester (ICD-10) NVD (normal vaginal delivery) ?O80 - Encounter for full-term uncomplicated delivery (ICD-10) Surgical History In vitro fertilization (05/2022) ?Z31.83 - Encounter for assisted reproductive fertility procedure cycle (ICD- 10) [place] teeth extracted (2009) ?K08.409 - Partial loss of teeth, unspecified cause, unspecified class (ICD- 10) Family History Aunt Breast cancer, Onset Age: 40 Seizure disorder Uncle Pancreatic cancer Uncle Brain cancer Social History 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[place] No regular exercise but will be starting Lifetime nonsmoker Rare alcohol use What is your current living situation?: I presently have a place to live Problems where you live: no known problems In the past 12 months, utilities in danger of being shut off: no In past 12 months, lack of transportation kept you from medical appts, meetings, work, or getting things needed for daily living: no In the past 12 mos, have been you worried that your food would run out before you had money to buy more?: never true In the past 12 mos, the food you bought just didn't last and you didn't have money to buy more?: never true Smoking Status: Never smoker Do you use any of these nicotine containing products: None Second hand tobacco smoke exposure: No How often do you have a drink containing alcohol: never AUDIT-C Alcohol total score: 0 Non-prescribed substance use: denies use How often does anyone, including family, friends and others, physically hurt you : never How often does anyone, including family, friends and others, insult or talk down to you: never How often does anyone, including family, friends and others, threaten you with harm: never How often does anyone, including family, friends and others, scream or curse at you: never Little interest or pleasure in doing things: not at all Feeling down, depressed, or hopeless: not at all Exam Narrative: Exam Narrative: Vital signs as noted above. In general, an alert, well-appearing patient. Head: Normocephalic, atraumatic. Eyes: Pupils are equal reactive. Extraocular movements are full. Conjunctivae are normal. ENT: Mucous membranes are moist. Throat is normal. Neck: Supple without lymphadenopathy. Heart: Tachycardic and regular without murmur. Lungs: Clear bilaterally. No increased work of breathing, crackles or wheezes. Abdomen: Soft and nontender. No organomegaly. Pelvic: Normal external genitalia, cervix is normal in appearance, scant bleeding from the cervical os. Extremities: Well perfused. No edema. No calf tenderness. Pulses intact. Neurologic: Patient is alert and oriented to person and place. Speech is fluent. Face is symmetric. Moves all extremities equally. Affect: Tearful. Skin: Warm and dry. Well perfused. Const: Vital Signs, click to edit/add: Vital Signs - 24 hr 09/06/24 09:34 Temperature 98.4 F Pulse Rate [Right Pulse Oximeter] 125 H Respiratory Rate 18 Blood Pressure [Ri ght Upper Arm] 148/92 H Pulse Oximetry 98 Oxygen Delivery Me thod Room Air Documenting provider has reviewed patient's vital signs: yes Course Course ED Course: Records from yesterday were reviewed. I did do an EKG today as she presented again with tachycardia. Her tachycardia actually had resolved at the time of her EKG and she was in a normal sinus rhythm with a ventricular rate of 98. No acute ST segment changes. Unremarkable Q-waves. Normal corrected QT. I repeated a CBC, hemoglobin remains 14.4. She has normal platelets at 264,000. Metabolic panel remains normal, magnesium is 2.4, I did do a TSH but that was pending at the time of her discharge. Based on her pelvic exam, she does not seem to be having significant bleeding at this time. By her report, it is significantly improved, just not resolved. I spoke with Dr. Moon, she felt that as long as she was improving it would be better to stay on the current progesterone rather than trying to change it. Patient actually has an appointment scheduled on Thursday with gynecology. Dr. Moon felt it would be reasonable to wait and get an ultrasound as an outpatient. Patient was crying at the time of my initial visit with her, she says that she just does not like being in the hospital. She was improved by the end of her stay. Tachycardia had resolved, unclear to me whether this is simply related to anxiety. I do not see any concerning features on her EKG or labs. TSH is normal. If bleeding worsens again return to the emergency department. Vital Signs Vital signs: Initial Vital Signs Temperature 98.4 F 09/06/24 09:34 Temperature Source Temporal Artery Scan 09/06/24 09:34 Pulse Rate 125 H 09/06/24 09:34 Respiratory Rate 18 09/06/24 09:34 Blood Pressure 148/92 H 09/06/24 09:34 Blood Pressure Mean 110 H 09/06/24 09:34 Blood Pressure Position Sitting 09/06/24 09:34 Pulse Oximetry 98 09/06/24 09:34 Oxygen Delivery Method Room Air 09/06/24 09:34 Vital Signs Temperature 98.4 F 09/06/24 09:34 Pulse Rate 125 H 09/06/24 09:34 Respiratory Rate 18 09/06/24 09:34 Blood Pressure 148/92 H 09/06/24 09:34 Pulse Oximetry 98 09/06/24 09:34 Oxygen Delivery Method Room Air 09/06/24 09:34 Temperature 98.4 F 09/06/24 09:34 Pulse Rate 125 H 09/06/24 09:34 Respiratory Rate 18 09/06/24 09:34 Blood Pressure 148/92 H 09/06/24 09:34 Pulse Oximetry 98 09/06/24 09:34 Oxygen Delivery Method Room Air 09/06/24 09:34 Medications Administered Medications: Discontinued Medications Generic Name Dose Route Start Last Admin Trade Name Freq PRN Reason Stop Dose Admin Sodium Chloride 500 mls @ 500 mls/hr 09/06/24 10:02 09/06/24 10:59 0.9 % Sodium Chloride 500 Ml IV 09/06/24 11:01 500 mls/hr .Q1H ONE Administration Medical Decision Making Lab Data Labs: Lab Results 09/06/24 09/06/24 Range/Units 10:36 11:11 WBC 9.99 (4.50-11.00) K/uL RBC 4.93 (4.00-5.20) m/uL Hgb 14.4 (12.0-16.0) gm/dL Hct 43.1 (33.0-51.0) % MCV 87 (80-100) fL MCH 29 (26-34) pg MCHC 33 (32-36) gm/dL RDW Coeff of Ruddy 11.9 (11.5-15.5) % Plt Count 264 (140-440) K/uL Neut % (Auto) 86.5 H (42.0-72.0) % Lymph % (Auto) 10.0 L (20-44) % [place] % (Auto) 3.0 (0.0-11.0) % Eos % (Auto) 0.2 (0.0-7.0) % Baso % (Auto) 0.2 (0.0-3.0) % Neut # (Auto) 8.60 H (1.7-7.0) K/uL Lymph # (Auto) 1.00 (0.90-2.90) K/uL [place] # (Auto) 0.30 (0.00-0.90) K/UL Eos # (Auto) 0.02 (0.00-0.50) K/uL Baso # (Auto) 0.02 (0.00-0.30) K/uL Abs Immat Gran (auto) 0.01 (0.00-0.30) K/uL Imm/Tot Granulo (auto) 0.1 % Sodium 138 (135-149) mmol/L Potassium 3.8 (3.6-5.1) mmol/L Chloride 103 (96-114) mmol/L Carbon Dioxide 23 (20-32) mmol/L Anion Gap 12 (7-15) mEq/L BUN 4 L (5-24) mg/dL Creatinine 0.5 (0.5-1.5) mg/dL Estimated Creat Clear 146.70 Estimated GFR 129 ml/min Glucose 100 (60-115) mg/dL Calcium 9.5 (8.4-10.6) mg/dL Magnesium 2.4 (1.5-2.6) mg/dL TSH 1.220 (0.270-4.200) uIU/mL Discharge Plan Discharge Clinical Impression: Menorrhagia, PCOS (polycystic ovarian syndrome) Instructions: Abnormal (Dysfunctional) Uterine Bleeding (ED) Additional Instructions: Your hemoglobin remains stable today, 14.4. Your thyroid testing is pending, I will follow-up on this and let you know if any adjustments need to be made. I spoke with Dr. Moon, who is on-call for Gynecology today. She does recommend that you be seen in clinic for follow-up, and an ultrasound can be ordered at that time. She would recommend that you stay on the progestin as currently prescribed given the failure bleeding is better today than it was yesterday. You may continue to have bleeding to some degree, as long as it is stable to improving, you do not need to be seen again in the ER. If you have resumption of much heavier vaginal bleeding, return at any time. Prescriptions: No Action cholecalciferol (vitamin D3) 25 mcg (1,000 unit) capsule 25 mcg PO QDAY DHA 200 mg capsule 200 mg PO DAILY aspirin [Adult Low Dose Aspirin] 81 mg tablet,delayed release (DR/EC) 81 mg PO QDAY diphenhydramine HCl [Benadryl] 25 mg capsule 25 mg PO QHS PRN magnesium 250 mg tablet 250 mg PO DAILY medroxyprogesterone [Provera] 10 mg tablet See Rx Instructions .ROUTE .COMPLEX Qty: 45 0RF Rx Instructions: 10 mg t.i.d. x7 days; 10 mg b.i.d. for 7 days; 10 mg daily until follow-up levothyroxine 88 mcg tablet 88 mcg PO DAILY Qty: 90 0RF Follow Up/Referrals: Maryuri Campbell MD [Primary Care Provider] - Stand Alone Forms: [employer] Info Instructions
== END 2024-09-06 12:05 | disposition home or self-care (01) ==
PROVIDERS: Emergency Provider Emergency Medicine; PCP Family Medicine
DX: N92.0 Excessive and frequent menstruation with regular cycle (principal); E28.2 Polycystic ovarian syndrome
CPT/HCPCS: 36415; 80048; 83735; 84443; 85025; 93005; 99284; J7030

== ENCOUNTER 2024-09-20 07:08 | Outpatient (CLI) | payer OTHER, SELFPAY ==
--- NOTE | 2024-09-20 07:15 | CRLHL7_ITS ---
For Patients: As a result of the Century Cures Act, medical imaging exams and procedure reports are released immediately into your electronic medical record. You may view this report before your referring provider. If you have questions, please contact your health care provider. CLINICAL HISTORY: Excessive infrequent menstruation TECHNIQUE: Real time, cox scale images were acquired of the pelvis using a transabdominal and transvaginal approach. Color Doppler analysis was performed of the ovaries. FINDINGS: The uterus appears unremarkable and measures 8.4 x 4.4 x 5.8 centimeters. Endometrium measures 8 millimeters. Right ovary measures 4.2 x 2.5 x 3.8 centimeters left ovary measures 3.4 x 2.2 x 3 centimeters. Normal blood flow to both ovaries. Small peripheral follicles bilaterally could be seen with polycystic ovaries small amount of free fluid in the pelvis. IMPRESSION: Small peripheral follicles bilaterally could be seen with polycystic ovaries. Small amount of free fluid in the pelvis. Dictated by Kassy Wallace MD @ 09/20/2024 12:36:40 PM (Electronically Signed)
== END 2024-09-20 07:09 | disposition home or self-care (01) ==
LOC: US 07:09
PROVIDERS: PCP Family Medicine; Visit Provider Obstetrics & Gynecology
DX: N92.0 Excessive and frequent menstruation with regular cycle (principal); N83.02 Follicular cyst of left ovary; N83.01 Follicular cyst of right ovary; E28.2 Polycystic ovarian syndrome
CPT/HCPCS: 76830; 76856

== ENCOUNTER 2025-02-13 11:48 | Outpatient (CLI) | payer OTHER, SELFPAY ==
--- NOTE | 2025-02-13 12:15 | CRLHL7_ITS ---
For Patients: As a result of the Century Cures Act, medical imaging exams and procedure reports are released immediately into your electronic medical record. You may view this report before your referring provider. If you have questions, please contact your health care provider. OB ULTRASOUND LESS THAN 14 WEEKS, 02/13/2025 CLINICAL HISTORY: Dating and viability. COMPARISON: None. TECHNIQUE: Real time cox scale imaging of the fetus was performed transvaginal. FINDINGS: Surgery: No. Imaging: Transvaginal. IVF: 09/22/2025. GA: 8 weeks 3 days. CRL: 1.9 cm, 8 weeks 3 ays. JOEL 09/22/2025. FHR: 190 bpm. GEST SAC: 3.2 cm, appears within normal limits. YOLK SAC: 3.2 mm, appears within normal limits. RIGHT OVARY: 3.6 x 1.9 x 2.7 cm, within normal limits. LEFT OVARY: 2.8 x 2.5 x 2.2 cm, within normal limits. IMPRESSION: 1. Single living intrauterine with sonographic gestational age 8 weeks 3 days and sonographic due date 09/22/2025. 2. Right-sided subchorionic hemorrhage measures 2.8 x 0.8 x 0.6 cm. Jason Addison M.D. Diagnostic Radiologist [email or web address] Transcribed: 1:55 pm DW/Dictated by: Jason Addison MD @ 02/13/2025 1:18:00 PM (Electronically Signed)
== END 2025-02-13 11:49 | disposition home or self-care (01) ==
LOC: US 11:48
PROVIDERS: PCP Family Medicine; Visit Provider Physician Assistant
DX: Z34.91 Encounter for supervision of normal pregnancy, unspecified, first trimester (principal); O20.9 Hemorrhage in early pregnancy, unspecified; Z3A.08 8 weeks gestation of pregnancy
CPT/HCPCS: 76817

== ENCOUNTER 2025-02-13 13:18 | Outpatient (CLI) | payer OTHER, SELFPAY ==
[2025-02-13 20:25] LABS: Chlamydia DNA Amplified* NOT DETECTED (No Detected); GC DNA Amplified* NOT DETECTED (No Detected)
== END 2025-02-13 13:19 | disposition home or self-care (01) ==
PROVIDERS: PCP Family Medicine; Visit Provider Physician Assistant
DX: Z34.91 Encounter for supervision of normal pregnancy, unspecified, first trimester (principal); Z87.59 Personal history of other complications of pregnancy, childbirth and the puerperium; Z3A.08 8 weeks gestation of pregnancy
CPT/HCPCS: 82565; 82570; 83020; 83021; 84156; 84443; 84450; 84460; 84520; 85660; 86592; 86703; 86704; 86706; 86762; 86787; 86803; 86850; 86900; 86901; 87086; 87340; 87491; 87591

== ENCOUNTER 2025-02-20 06:00 | Outpatient (CLI) | payer OTHER, SELFPAY | END 2025-02-20 06:01 | disposition home or self-care (01) | LOC: NFLDREF 02-22 05:27 | PROVIDERS: PCP Family Medicine; Referring Provider Family Medicine; Visit Provider Physician Assistant | DX: Z34.81 Encounter for supervision of other normal pregnancy, first trimester (principal); Z87.59 Personal history of other complications of pregnancy, childbirth and the puerperium | CPT/HCPCS: 82570; 84156 ==

== ENCOUNTER 2025-04-10 09:11 | Outpatient (CLI) | payer OTHER, SELFPAY | END 2025-04-10 09:12 | disposition home or self-care (01) | PROVIDERS: PCP Family Medicine; Visit Provider Advanced Practice Midwife | DX: O09.812 Supervision of pregnancy resulting from assisted reproductive technology, second trimester (principal); Z3A.16 16 weeks gestation of pregnancy | CPT/HCPCS: 81511 ==

== ENCOUNTER 2025-05-03 10:18 | Outpatient (CLI) | payer OTHER, SELFPAY ==
--- OUTSIDE RECORDS SUMMARY | 2025-05-04 00:33 | XMS_ITS | Clinical Summary ---
Author Organization [facility] Address [address] [place] [id number] Care Team Providers Care Lumber Marker Name Role Phone eKri Cantu CNM Unavailable [phone] Maryuri Campbell MD Primary Care Provider + Harinder Christensen MD Unavailable Allergies No known active allergies Medications ascorbic acid (vitamin C) (Vitamin C) 500 mg tablet Take 500 mg by mouth once daily. 11/14/2024 Active aspirin 81 mg cap Take 81 mg by mouth once daily. 02/07/2025 Active cholecalciferol (Vitamin D3) 2,000 unit tablet Take 2,000 units by mouth once daily. 11/14/2024 Active magnesium 250 mg tab Take 250 mg by mouth once daily. 07/18/2024 Active levothyroxine 88 mcg tablet Take 88 mcg by mouth once daily. 08/22/2022 Active Active Problems Problem Noted Date Diagnosed Date resulting from ass isted reproductive technology in second trimester 04/15/2023 Low-lying placenta in second trimester 3 Health counseling 06/10/2013 Encounters Date Type Department Care Team Description 03/31/2025 Telephone [facility] [address] [place] [address] 777 Harinder Christensen MD Follow Up (CEC, Please direct call back to [facility] Nephrology computer technology instructor Pool./Nephrology Post Visit (03/27/2025) RN Follow-up Call ) 03/27/2025 8:15 AM CDT Office Visit [facility] [address] [place] [address] Harinder Christensen MD Consult (R80.9 (ICD-10-CM) - Proteinuria, unspecified type) 03/27/2025 Travel 03/22/2025 Travel 02/25/2025 Transcribe Orders [facility] [id number] [place] [id number] Yoana Anderson PA-C from Last 3 Months Immunizations Immunization Administration Dates Next Due COVID-19 vaccine ([employer] 30mcg/0.3mL) PF, MDV 11/27/2020,11/06/2020 DTP 06/27/1997, 4,05/28/1993,03/19,01/08/1993 HIB PRP-OMP (PedvaxHIB) 05/28/1993,03/19/1993, Hepatitis A (Adult) 05/20/2012 Hepatitis A (Peds) 04/17/2011 Hepatitis B (Peds) 02/11/1997, 7,05/28/1993,02/11,01/08/1993,1992 Influenza, IIV4 (=>6mos) MDV 08/07/2021 MENINGOCOCCAL VACCINE 2 VIAL 2MO-55YO (MENVEO) 04/17/2011 MMR 01/13/2000,05/19/1994 Meningococcal Vaccine (Menactra) 06/15/2008 Oral Polio Vaccine 06/27/1997, 4,03/19/1993,01/08 Td (Age >=7 Years) 04/28/2005 Tdap 05/20/2012 Varicella Vaccine 01/09/2020 Family History Medical History Relation Name Comments Good Health Father Good Health Mother Relation Name Status Comments Brother Alive Father Alive Mother Alive Social History Tobacco Use Types Packs/Day Years Used Date Smoking Tobacco: Never Smokeless Tobacco: Never Tobacco Cessation:Counseling Given: No Alcohol Use Standard Drinks/Week Comments Yes 0 (1 standard drink = 0.6 oz pur e alcohol) seldom PHQ-2 Answer Date Recorded PHQ-2 TOTAL SCORE 0 04/16/2022 Social Connections Answer Date Recorded Frequency of Communication with Friends and Fami ly Not on file 04/16/2022 Comments Unknown Sex and Gender Information Value Date Recorded Sex Assigned at Female 05/07/2020 4:55 PM CDT Legal Sex Female 5:26 AM MANUAL TESTER Gender Identity Female 05/07/2020 4:55 PM CDT Sexual Orientation Straight 05/07/2020 4: 55 PM CDT 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 Not on file Not on file Not on file Obstetrics History Para Term AB IAB SAB Ectopic Multiple Livin g Live Births 1 Date Outcome GA Total Labor Labor/2nd/3rd Weight Sex Type Anes PTL Daija A1 A5 Name Clin Last Filed Vital Signs Vital Sign Reading Time Taken Comments Blood Pressure 130/70 03/27/2025 8:17 AM CDT Pulse 123 03/27/2025 8:17 AM CDT Temperature 37 C (98.6 F) 04/16/2022 2:26 PM CDT Respiratory Rate 16 05/25/2014 2:28 PM CDT Oxygen Saturation 100% 01/22/2013 3:20 PM CDT Inhaled Oxygen Concentration - - Weight 78.9 kg (174 lb) 03/27/2025 8:17 AM CDT Height 165.5 cm (5' 5.16) 04/16/2022 2:26 PM CD T Body Mass Index 28.82 04/16/2022 2:26 PM CDT Plan of Treatment Upcoming Encounters Date Type Department Care Team (Late st Contact Info) Description 05/22/2025 9:30 AM CDT Orders Only [facility] [address] [place] [address] 05/30/2025 9:15 AM CDT Office Visit [facility] [address] [place] [address] [place] [address] [place] [address] Health Maintenance Due Date Last Done Comments HIV for age 15-65 2007 Hepatitis C screening for age 18-79 2010 Tetanus booster 05/20/2022 05/20/2012, 04/28/2005 BMI (ht and wt on same day) for age 18+ 04/16/2023 04/16/2022, 06/17/2019, 06/13/2016 Depression screening for age 12+ 04/16/2023 04/16/2022, 03/06/2021, 06/17/2019, Additional history exists COVID-19 vaccine series ( season) 2024 08/07/2021, 11/27/2020, 11/06/2020 Influenza Vaccine (Season Ended) 2025 08/07/2021 Pap test for age 21-65 01/27/2026 , 01/27/2023, 01/08/2021 Hepatitis B series for 19+ Completed 02/11, 11/19/1996, 05/28/1993, Additional history exists Tdap Completed 05/20/2012 Pneumococcal series for age 6-49 Aged Out No longer eligible based on patient's age to complete this topic Procedures Procedure Name Priority Date/Time Associated Diagnosis Comments PROTEIN/CREAT RATIO,URINE Routine 03/27/2025 9:07 AM CDT Proteinuria, unspecified type BASIC METABOLIC PANEL Routine 03/27/2025 9:02 AM CDT Proteinuria, unspecified type AUTOMATIC PUNCH PRESS OPERATOR THIN PREP PAP SCREEN IMAGED Routine 01/27/2023 12:00 PM CDT from Last 3 Months or Most Recently Relevant to Health Maintenance Results * (ABNORMAL) PROTEIN/CREAT RATIO,URINE (03/27/2025 9:07 AM CDT) PROTEIN QUANT,RAND URINE <6 1 - 14 mg/dL 03/27/2025 4:02 PM CDT [facility] CREAT,RANDOM URINE 8.6(L) 28.0 - 217.0 mg/dL 03/27/2025 4:02 PM CDT [facility] PROT/CREAT RATIO,UR 03/27/2025 4:02 PM CDT [facility] Comment:Urine Protein below measurement range, unable to calculate. Urine URINE SPECIMEN / Unknown Non-Blood / Unknown 03/27/2025 9:07 AM CDT 03/27/2025 9:07 AM CDT Harinder Christensen MD URINE Final Result [facility] [address] [place] [address], * BASIC METABOLIC PANEL (03/27/2025 9:02 AM CDT) SODIUM 137 135 - 146 mmol/L 03/28/2025 11:28 AM CDT [facility] POTASSIUM 4.5 3.5 - 5.3 mmol/L 03/28/2025 11:28 AM CDT [facility] CARBON DIOXIDE 23 20 - 32 mmol/L 03/28/2025 11:28 AM CDT [facility] GLUCOSE 81 65 - 99 mg/dL 03/28/2025 11:28 AM CDT [facility] Comment: Fasting reference interval CALCIUM 9.5 8.6 - 10.2 mg/dL 03/28/2025 11:28 AM CDT [facility] CREATININE 0.59 0.50 - 0.97 mg/dL 03/28/2025 11:28 AM CDT [facility] BUN/CREATININE RATIO SEE NOTE: 6 - 22 (calc) 03/28/2025 11:28 AM CDT [facility] Comment: Not Reported: BUN and Creatinine are within reference range. EGFR 123 > OR = 60 mL/min/1. 73m2 03/28/2025 11:28 AM CDT [facility] UREA NITROGEN (BUN) 7 7 - 25 mg/dL 03/28/2025 11:28 AM CDT [facility] ELECTROLYTE BALANCE 9 7 - 17 mmol/L (calc) 03/28/2025 11:28 AM CDT [facility] CHLORIDE 105 98 - 110 mmol/L 03/28/2025 11:28 AM [facility] Blood BLOOD SPECIMEN / Unknown Non-Lab Venipuncture / Unknown 03/27/2025 9:02 AM CDT 03/27/2025 9:02 AM CDT Harinder Christensen MD CHEMISTRY Final Result [employer] [facility] [place] [address] [place] [address], * AUTOMATIC PUNCH PRESS OPERATOR THIN PREP PAP SCREEN IMAGED (01/27/2023 12:00 PM CDT) Case Report Gynecologic Cytology Report Case: [id number] Authorizing Provider: Anali Foy NP Collected: 01/27/2023 1200 Ordering Location: [facility] Received: 01/29/2023 1148 First Screen: Socorro Mejia Specimen: AUTOMATIC PUNCH PRESS OPERATOR ThinPrep Vial Screening, Cervical 02/20/2023 8:27 AM CDT [facility] INTERPRETATION/ RESULT NEGATIVE FOR INTRAEPITHELIAL LESION OR MALIGNANCY (NIL) (none) 02/20/2023 8:27 AM CDT [facility] at 0827 CDT SPECIMEN ADEQUACY Satisfactory for evaluation Endocervical component present 02/20/2023 8:27 AM CDT [facility] HPV REQUEST HPV and PAP 02/20/2023 8:27 AM CDT [facility] Date of LMP 11/23/2022 02/20/2023 8:27 AM CDT [facility] Last Pap Date 02/20/2023 8:27 AM CDT [facility] Comment:2019 Last Pap Result NIL 8:27 AM CDT [facility] Abnormal Pap or Wassaic Bx in last 5 years No 02/20/2023 8:27 AM CDT [facility] Menstrual Status 02/20/2023 8:27 AM CDT [facility] Wassaic Bx Done Today No 02/20/2023 8:27 AM CDT [facility] Additional Information 02/20/2023 8:27 AM CDT [facility] Comment: Interpreted at [facility] [place] [address] Automated Review Successful 02/20/2023 8:27 AM CDT [facility] Comment:Specimen processed s uccessfully by automated roadability machine operator device, [employer] System, [employer] ANCILLARY TESTING AUTOMATIC PUNCH PRESS OPERATOR HPV Ordered, Please see separate report 02/20/2023 8:27 AM CDT [facility] Note The pap test is a screening technique, not a diagnostic procedure. It is used primarily to screen for squamous cancers and precursor lesions. Published studies have shown that it is subject to both false negative and false positive results. The pap test should not be used as the sole means to diagnose or exclude pre-malignant and malignant lesions. 02/20/2023 8:27 AM CDT [facility] Other (Cervical) 01/27/2023 12:00 PM CDT 01/29/2023 11:48 AM CDT Anali Foy NP PATHOLOGY/CYTOLOGY Final Result [facility] [address] [place] [address], from Last 3 Months or Most Recently Relevant to Health Maintenance Insurance [employer] CHOICE Care Teams Lumber Marker Relationship Specialty Start Date End Date Maryuri Campbell MD [address] [place] [address] PCP - General Family Practice 03/27/25 Keri Cantu CNM [address] [place] [id number] Certified Nurse Optical Technician 03/19/23 [place] [address] [place] [address] Nephrology Nephrology 03/27/25
== END 2025-05-03 10:19 | disposition home or self-care (01) ==
LOC: US 10:18
PROVIDERS: PCP Family Medicine; Visit Provider Advanced Practice Midwife
DX: O09.812 Supervision of pregnancy resulting from assisted reproductive technology, second trimester (principal); O99.282 Endocrine, nutritional and metabolic diseases complicating pregnancy, second trimester; O12.12 Gestational proteinuria, second trimester; Z3A.19 19 weeks gestation of pregnancy
CPT/HCPCS: 76811

== ENCOUNTER 2025-05-08 08:34 | Outpatient (CLI) | payer OTHER, SELFPAY | END 2025-05-08 08:35 | disposition home or self-care (01) | LOC: NFLDREF 08:37 | PROVIDERS: PCP Family Medicine; Visit Provider Advanced Practice Midwife | DX: E03.9 Hypothyroidism, unspecified (principal) | CPT/HCPCS: 84443 ==

== ENCOUNTER 2025-06-05 09:20 | Outpatient (CLI) | payer OTHER, SELFPAY | END 2025-06-05 09:21 | disposition home or self-care (01) | PROVIDERS: PCP Family Medicine; Visit Provider Midwife, Lay | DX: O99.712 Diseases of the skin and subcutaneous tissue complicating pregnancy, second trimester (principal); L29.9 Pruritus, unspecified; Z3A.24 24 weeks gestation of pregnancy | CPT/HCPCS: 82239; 84450; 84460 ==

== ENCOUNTER 2025-07-03 09:03 | Outpatient (CLI) | payer OTHER, SELFPAY ==
--- NOTE | 2025-07-03 09:15 | CRLHL7_ITS ---
For Patients: As a result of the Century Cures Act, medical imaging exams and procedure reports are released immediately into your electronic medical record. You may view this report before your referring provider. If you have questions, please contact your health care provider. OB ULTRASOUND FOLLOW-UP/LIMITED, 07/03/2025 CLINICAL HISTORY: IVF. COMPARISON: 05/03/2025. TECHNIQUE: Real time cox scale imaging of the fetus was performed. Transabdominal imaging performed. FINDINGS: JOEL by LMP/US: 09/22/2025. GA: 28 weeks 3 days. Gestation: Single. Cervix: Not visualized. Positioning: Vertex. Amniotic Fluid: 7.0 cm SDP. Placenta: Technique: TA. Placenta Position: Anterior. Dopplers: Heart Rate: 150 bpm. BIOMETRY: BPD: 7.8 cm, 31 weeks 2 days. >97% HC: 28.5 cm, 31 weeks 2 days. 93% AC: 27.3 cm, 31 weeks 5 days. >97% FL: 5.2 cm, 27 weeks 6 days. 20% EFW: 1545 grams, 3 lb 6 oz. age by this US: 30 weeks 3 days. JOEL by this US: 09/08/2025. Percentile by JOEL: 95% IMPRESSION: 1. Sonographic gestational age 30 weeks 3 days and sonographic due date 09/08/2025. Sonographic age is 2 days ahead of the clinical age. 2. Estimated weight 95th percentile. Abdominal circumference greater than 97th percentile. Biparietal diameter also greater than 97th percentile. 3. There are two placental lakes present measuring 4.0 x 2.4 x 1.9 cm and 4.3 x 1.9 x 3.0 cm. Jason Addison M.D. Diagnostic Radiologist [email or web address] Transcribed: 10:13 am DW/Dictated by: Jason Addison MD @ 07/03/2025 10:03:00 AM (Electronically Signed)
== END 2025-07-03 09:04 | disposition home or self-care (01) ==
LOC: US 09:04
PROVIDERS: PCP Family Medicine; Visit Provider Advanced Practice Midwife
DX: O09.813 Supervision of pregnancy resulting from assisted reproductive technology, third trimester (principal); Z3A.28 28 weeks gestation of pregnancy
CPT/HCPCS: 76816; 84443; 84450; 84460; 86592

== ENCOUNTER 2025-08-14 07:07 | Outpatient (CLI) | payer OTHER, SELFPAY ==
--- NOTE | 2025-08-14 07:15 | CRLHL7_ITS ---
For Patients: As a result of the Century Cures Act, medical imaging exams and procedure reports are released immediately into your electronic medical record. You may view this report before your referring provider. If you have questions, please contact your health care provider. INDICATION: Encounter for supervision of normal in 3rd trimester. TECHNIQUE: Ultrasound OB pelvis transabdominal. Real-time cox-scale imaging of the fetus was performed as well as color Doppler and spectral Doppler analysis of the umbilical artery. COMPARISON: Ultrasound June 2025 FINDINGS: Single living intrauterine gestation. heart rate: 169 beats per minute. Presentation: Cephalic. Placenta: Anterior. Amniotic fluid deepest pocket: 6.3 cm. The following biometric measurements were obtained: Biparietal diameter: < 97 percentile. Head circumference: < 97 percentile. Abdominal circumference: 97 percentile. Femur length: 16 percentile. Ultrasound age: 38 weeks 0 day. JOEL by US: 08/28/2025. EFW: 3020+/- 453 Grams, 96 %. IMPRESSION.: Single viable intrauterine gestation in a cephalic presentation with estimated gestational age of 38 weeks 0 day. EFW is at 96th percentile. Dictated by Power Delarosa MD @ 08/14/2025 9:46:43 AM (Electronically Signed)
== END 2025-08-14 07:08 | disposition home or self-care (01) ==
LOC: US 07:08
PROVIDERS: PCP Family Medicine; Visit Provider Advanced Practice Midwife
DX: O09.813 Supervision of pregnancy resulting from assisted reproductive technology, third trimester (principal); Z3A.38 38 weeks gestation of pregnancy
CPT/HCPCS: 76816

== ENCOUNTER 2025-08-28 08:55 | Outpatient (CLI) | payer OTHER, SELFPAY ==
--- NOTE | 2025-08-28 09:15 | CRLHL7_ITS ---
For Patients: As a result of the Cures Act, medical imaging exams and procedure reports are released immediately into your electronic medical record. You may view this report before your referring provider. If you have questions, please contact your health care provider. OB ULTRASOUND LMP: IVF. JOEL: 09/22/2025. GA: 36 w, 3 d. Single. INDICATION: Supervision of normal . TECHNIQUE: Real time grayscale imaging of the fetus was performed. Transabdominal. CERVIX: Not visualized. POSITIONING: Vertex. AMNIOTIC FLUID: 7.2 cm. SDP (N: greater than 2 x 1 cm) BIOPHYSICAL PROFILE: 2: Gross body movements 2: tone 2: Respiratory activity 2: Amniotic fluid SDP (N: greater than 2 x 1 cm) 8/8: Total score PLACENTA: Technique: Transabdominal. PLACENTA POSITION: Anterior. DOPPLER: heart rate: 155 bpm. IMPRESSION: Normal biophysical profile score 8/8. Jason Addison M.D. Diagnostic Radiologist [email or web address] [email or web address]/Dictated by: Jason Addison MD @ 08/28/2025 5:54:00 PM (Electronically Signed)
== END 2025-08-28 08:56 | disposition home or self-care (01) ==
LOC: US 08:56
PROVIDERS: PCP Family Medicine; Visit Provider Advanced Practice Midwife
DX: O09.813 Supervision of pregnancy resulting from assisted reproductive technology, third trimester (principal); Z3A.36 36 weeks gestation of pregnancy
CPT/HCPCS: 76819; 87081; 87653

== ENCOUNTER 2025-09-08 07:31 | Inpatient (IN) | payer OTHER, SELFPAY ==
[2025-09-08] VITALS (72 sets, daily range): BP systolic 97–156; BP diastolic 56–92; PULSE 104–157; RESP 16–22; TEMP 36.6–37.1; O2SAT 93–100; BMI 34.4
--- NOTE | 2025-09-08 08:33 | P.LDBA_ITS ---
Subjective History of Present Illness Date Seen: 09/08/25 Narrative: Patient is being admitted to Labor and Delivery for IOL for chronic hypertension. She is a 34 year old at 38 0/7 weeks gestation. Her full history and physical was dictated by Karen CASH on 09/04/25. Please see this for details. She reports good movement, no vaginal bleeding of LOF. She is supported by her . Specific Issues/Plans Partner: Saul H&P: 09/04/25 by Chrissy Cabrera CNM # CKD stage 1. Dx by nephrology Repeat labwork and further eval based on labs. Waiting for further records to indicated f/u: 05/30: reports saw nephrology and all labs normal, no additional visits needed during per notes Avoid NSAIDs Repeat BMP and urine P/C ratio in 2 months (prior to next f/u). Pt reports labs to be done with them. Completed with 05/30/25 visit # Probable chronic HTN. Dx based on BP in Aug 2024 and at Nephrology appointment. Baseline pre-e labs including 24 urine? BP well controlled, not on medication? Growth US every 4 weeks; previously scheduled per MFM recommendation at 28 and 34 weeks, see below, pt elects to keep this schedule. Desires IOL at 38w0d GA for cHTN and suspected macrosomia: Requested 09/08 at 38 0/7 weeks @0730 am #Interested in pC/S - s/p consult on 08/29, planning IOL at 38w0d #Desires permanent sterilization - s/p consult on 08/29, consent signed - federal consent signed previously on 08/14, this seems to be erroneous? Pt has [employer] insurance, not medicaid. # IVF , frozen embryo transfer Level 2 ultrasound and MFM consult: ordered 03/13 (scheduled 05/03) echo: normal Weekly testing starting at 36 weeks: plan BPP (ordered) initially then NST weekly # history of preeclampsia with readmission for preeclampsia with severe features Aspirin 81 mg: taking Baseline pre E labs: pr/cr ratio: .45, o/w normal, 24 hour 0.29 24 urine for protein: 413. Referral to Nephrology: Seeing at [facility] Mid March # history of hemorrhage # hypothyroidism, levothyroxine 88 mcg TSH first-trimester: 1.03, keep dose as is TSH second-trimester: 1.980 no change TSH 3rd trimester: 1.360 # Placental white, several (see imaging below) [facility] recommended growth at 28 weeks and 34 weeks with testing weekly starting at 36 weeks 28 week growth: 95%ile, see below 34 week growth: 96%ile 36 week testing # Itching of hands and feet, RESOLVED AST 41, all other labs WNL; Bile Acid 2 AST decreased to 27 at 28wks. OB Labs: Blood type: A+, antibody screen negative. Hgb (08/14): 14.1 Platelets (07/03): 283 Rubella: Immune Varicella: Immune RPR: non-reactive HBsAg: negative HIV: negative GC/Chlamydia: negative/negative 1hr gtt: 120 GBS (08/28): negative Imaging: Level II Anatomy US (05/03/25): Impression: 1. Martinez at 19w5d gestational age. 2. No anomalies commonly detected by ultrasound were identified in the detailed anatomic survey within the limits of ultrasound. 3. Growth parameters and estimated weight are large for gestational age predicted by assigned JOEL. 4. The amniotic fluid volume appeared normal. 5. On transabdominal imaging the cervix appeared long and closed. 6. Placental lakes. #1 (near cord insertion): 3.2 x 1.5 x 3.5 cm. #2 (Rt/sup): 6.1 x 1.8 x 2.2 cm), no previa and other (several placental lakes, largest measuring 6 x 1.7 x 2 cm and 3 x 1.5 x 3.5 cm) Follow-up US (07/03/2025): IMPRESSION: 1. Sonographic gestational age 30 weeks 3 days and sonographic due date 09/08/2025. Sonographic age is 2 days ahead of the clinical age. 2. Estimated weight 95th percentile. Abdominal circumference greater than 97th percentile. Biparietal diameter also greater than 97th percentile. 3. There are two placental lakes present measuring 4.0 x 2.4 x 1.9 cm and 4.3 x 1.9 x 3.0 cm. Follow-up US (08/14/2025): IMPRESSION: Single viable intrauterine gestation in a cephalic presentation with estimated gestational age of 38 weeks 0 day. EFW is at 96th percentile. Vaccinations: COVID: declined Flu: 08/14/2025 Tdap: 07/17/2025 RSV: 07/31/2025 32 week mental health: completed 07/31 Hep B non-immune, not recommended to be two series OB - Problem Based A/P Additional Plan (1) Chronic hypertension affecting : Status: Acute (2) resulting from in vitro fertilization: Status: Acute Plan ASSESSMENT:?? 34 at 38 0/7 weeks gestation?? complicated by:??Stage 1 CKD, chronic HTN, IVF , placental lakes, hypothyroidism, hx PP hemorrhage and Preeclampsia with SF with hospital readmit, suspected macrosomia Labor type: Induced, not yet labor?? Category 2 FHR pattern with intermittent variables.??? Labor complicated by: cat 2 tracing, Elevated white blood cells noted on admit.?? GBS negative ?? PLAN:?? 1. Routine intrapartum cares as ordered. Pt desires AROM for labor induction to start. Head was well applied so this was done. 2. Monitoring per policy, continuous 3. Planning medicated . Candidate for analgesia of choice.??? 4. Patient encouraged to reposition and ambulate to promote physiologic labor and until epidural.?? 5. Additional labs ordered.? 6. Desires PPTL, will notify OB after her delivery. 7. Recheck full CBC in morning 8. Anticipate NSVB OB Exam Physical Exam Vital signs: Temp Pulse Resp BP Pulse Ox 98.3 F 110 H 16 137/84 99 09/08/25 08:16 09/08/25 07:43 09/08/25 08:16 09/08/25 07:43 09/08/25 07:44 Narrative: Vitals Reviewed Constitutional:? Alert and oriented x3 HEENT:? Normocephalic, atraumatic Neck:? Supple Lungs:? Clear to auscultation bilaterally Heart:? Regular rate and rhythm, no murmur, rub or gallop Abdomen:? Soft, nontender, and gravid. Vertex by Ambrosio's, confirmed with cervical exam. Extremities:? No edema or erythema Cervix: 3 cm/50%/-1 station/vertex with palpable skull sutures, well applied AROM clear fluid about 9 am NST: 145 bpm/moderate variability/ accelerations present/variable decels noted intermitently and spontaneously/uterine irritability noted
[2025-09-08 09:03] LABS: Hematocrit* 41.3 % (33.0-51.0); Hemoglobin* 13.6 gm/dL (12.0-16.0); Immature Granulocytes Pct Auto 0.3 %; Mean Corpuscular HGB Conc 33 gm/dL (32-36); Mean Corpuscular Hemoglobin 30 pg (26-34); Mean Corpuscular Volume 91 fL (80-100); RDW Coefficient of Variation % 12.3 % (11.5-15.5); Red Blood Count* 4.56 m/uL (4.00-5.20); White Blood Count* 18.12 K/uL (4.50-11.00)
[2025-09-08 09:04] LABS: Immature Granulocytes Abs Auto 0.10 K/uL (0.00-0.30); Lymphocytes Absolute Auto 3.50 K/uL (0.90-2.90); Slide Review Reflex No
[2025-09-08 09:26] LABS: Blood Urea Nitrogen* 6 mg/dL (5-24); Creatinine* 0.5 mg/dL (0.5-1.5); Est. Creatinine Clearance* 145.35; Estimated Glomerular Filt Rate 128 ml/min
[2025-09-08 09:27] LABS: Alanine Aminotransferase* 26 U/L (4-35); Aspartate Amino Transferase* 37 U/L (12-35)
[2025-09-08 12:27] LABS: Protein Creatinine Ratio Urine 0.32 (0-0.19)
[2025-09-08] MEDS: LACTATED RINGERS 1000 ML 1,000 ML 500 ML IV (13:30)
[2025-09-08] MEDS: LIDOCAINE 2% (PF) 5 ML VIAL EPIDURAL (13:53)
[2025-09-08 13:56] LABS: Appearance Urine Clear (Clear)
[2025-09-08] MEDS: ROPIVACAINE 0.2% 100 ml 100 ML 10 MG EPIDURAL (13:57)
[2025-09-08] MEDS: PHENYLEPHRINE 100 MCG/ML SYRINGE IVP ×2 (14:04→14:08)
--- NOTE | 2025-09-08 14:06 | P.ANBPRC_ITS ---
[facility] Medical History Dyslipidemia (03/2024) ?E78.5 - Hyperlipidemia, unspecified (ICD-10) Health care directive on file ?Z78.9 - Other specified health status (ICD-10) Pre-eclampsia in period ?O14.95 - Unspecified pre-eclampsia, complicating the puerperium (ICD-10) Preeclampsia ?O14.90 - Unspecified pre-eclampsia, unspecified trimester (ICD-10) Surgical History NVD (normal vaginal delivery) ?O80 - Encounter for full-term uncomplicated delivery (ICD-10) In vitro fertilization (05/2022) ?Z31.83 - Encounter for assisted reproductive fertility procedure cycle (ICD- 10) [place] teeth extracted (2009) ?K08.409 - Partial loss of teeth, unspecified cause, unspecified class (ICD- 10) Family History Aunt Breast cancer, Onset Age: 40 Seizure disorder Uncle Pancreatic cancer Uncle Brain cancer Social History Narrative: 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 Marital status: . Zoroastrianism/cultural needs: no. Chemical or radiation exposure: no. Pre- tobacco use: no. Pre- alcohol use: no. Current tobacco use: no. Current alcohol use: no. Recreational drug use: no. Dietary restrictions: no. Blood transfusion acceptable in an emergency: yes. PSYCHOSOCIAL HISTORY: History of depression or currently depressed: no. Current or past physical, emotional, or sexual mistreatment: no. Problems that will make it hard to make it to appointments: yes What is your current living situation?: I presently have a place to live Problems where you live: no known problems In the past 12 months, utilities in danger of being shut off: no In past 12 months, lack of transportation kept you from medical appts, meetings, work, or getting things needed for daily living: no In the past 12 mos, have been you worried that your food would run out before you had money to buy more?: never true In the past 12 mos, the food you bought just didn't last and you didn't have money to buy more?: never true Smoking Status: Never smoker Do you use any of these nicotine containing products: None Second hand tobacco smoke exposure: No How often do you have a drink containing alcohol: never AUDIT-C Alcohol total score: 0 Non-prescribed substance use: denies use How often does anyone, including family, friends and others, physically hurt you : unable to answer How often does anyone, including family, friends and others, insult or talk down to you: unable to answer How often does anyone, including family, friends and others, threaten you with harm: unable to answer How often does anyone, including family, friends and others, scream or curse at you: unable to answer Meds Home Medications and Allergies Home Medications ?Medication ?Instructions ?Recorded ?Confirmed ?Type docosahexaenoic acid 200 mg 200 mg PO DAILY 01/27/23 1 History capsule ( DHA) diphenhydramine HCl 25 mg capsule 25 mg PO QHS PRN 07/0209/08/25 History (Benadryl) magnesium 250 mg tablet 250 mg PO DAILY 09/05/24 History ascorbic acid (vitamin C) 500 mg 500 mg PO QDAY 09/08/25 History tablet aspirin 81 mg tablet,delayed 81 mg PO QDAY 02/13/25 History release cholecalciferol (vitamin D3) 50 50 mcg PO QDAY 5 09/08/25 History mcg (2,000 unit) capsule levothyroxine 88 mcg tablet 88 mcg PO DAILY #90 tabs 0 06/14/25 09/08/25 Rx Allergies Allergy/AdvReac Type Severity Reaction Status Date / Time Latex, Natural Rubber Allergy Mild Redness of Verified 09/08/25 08:17 Skin, rash Results Labs Labs: Laboratory Results - last 24 hr 09/08/25 09/08/25 09/08/25 08:55 09:29 13:41 WBC 18.12 H RBC 4.56 Hgb 13.6 Hct 41.3 MCV 91 MCH 30 MCHC 33 RDW Coeff of Ruddy 12.3 Plt Count 345 Neut % (Auto) 68.7 Lymph % (Auto) 19.4 L [place] % (Auto) 8.6 Eos % (Auto) 2.8 Baso % (Auto) 0.2 Neut # (Auto) 12.40 H Lymph # (Auto) 3.50 H [place] # (Auto) 1.60 H Eos # (Auto) 0.50 Baso # (Auto) 0.00 Abs Immat Gran (auto) 0.10 Imm/Tot Granulo (auto) 0.3 BUN 6 Creatinine 0.5 Estimated Creat Clear 145.35 Estimated GFR 128 AST 37 H ALT 26 Urine Creatinine 37.8 Protein/Creatinin Ratio 0.32 H Urine Total Protein 12 Lab Acknowledgement Test Added Blood Type A Positive Antibody Screen NEGATIVE Crossmatch ([facility]) See Detail Vital Signs Vital Signs: Last Vital Signs Temp 98.3 F 09/08/25 12:59 Pulse 114 H 09/08/25 14:04 Resp 16 09/08/25 12:59 BP 130/80 09/08/25 14:04 Pulse Ox 96 09/08/25 14:03 Weight: 93.894 kg Height: 165.1 cm Anesthesia Procedures Epidural Insertion Patient Location: OB Start Time: 13:30 Stop Time: 14:10 Start Date: 09/08/25 Stop Date: 09/08/25 Reason for Block: primary anesthetic Patient Position: sitting Performed By: Markos Ceballos Preanesthetic Checklist: IV checked, risks and benefits discussed, surgical consent, monitors and equipment checked, pre-op evaluation, timeout performed and anesthesia consent Prep: chlorhexidine gluconate Monitoring: blood pressure monitoring, 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
--- NOTE | 2025-09-08 14:27 | P.OBPN_ITS ---
Subjective Time Seen by Provider: 12:15 Date Seen: 09/08/25 Narrative: Patient was admitted to Labor and Delivery for IOL for chronic hypertension. Her membranes were ruptured this morning. She is not yet feeling strong contractions but does note she didn't really with her last either. She is planning to get up and do some positions to get things going with nurse next. She has no symptoms of infection. She is supported by her . Specific Issues/Plans Partner: Saul H&P: 09/04/25 by Chrissy Cabrera CNM # CKD stage 1. Dx by nephrology Repeat labwork and further eval based on labs. Waiting for further records to indicated f/u: 05/30: reports saw nephrology and all labs normal, no additional visits needed during per notes Avoid NSAIDs Repeat BMP and urine P/C ratio in 2 months (prior to next f/u). Pt reports labs to be done with them. Completed with 05/30/25 visit # Probable chronic HTN. Dx based on BP in Aug 2024 and at Nephrology appointment. Baseline pre-e labs including 24 urine? BP well controlled, not on medication? Growth US every 4 weeks; previously scheduled per MFM recommendation at 28 and 34 weeks, see below, pt elects to keep this schedule. Desires IOL at 38w0d GA for cHTN and suspected macrosomia: Requested 09/08 at 38 0/7 weeks @0730 am #Interested in pC/S - s/p consult on 08/29, planning IOL at 38w0d #Desires permanent sterilization - s/p consult on 08/29, consent signed - federal consent signed previously on 08/14, this seems to be erroneous? Pt has [employer] insurance, not medicaid. # IVF , frozen embryo transfer Level 2 ultrasound and MFM consult: ordered 03/13 (scheduled 05/03) echo: normal Weekly testing starting at 36 weeks: plan BPP (ordered) initially then NST weekly # history of preeclampsia with readmission for preeclampsia with severe features Aspirin 81 mg: taking Baseline pre E labs: pr/cr ratio: .45, o/w normal, 24 hour 0.29 24 urine for protein: 413. Referral to Nephrology: Seeing at [facility] # history of hemorrhage # hypothyroidism, levothyroxine 88 mcg TSH first-trimester: 1.03, keep dose as is TSH second-trimester: 1.980 no change TSH 3rd trimester: 1.360 # Placental white, several (see imaging below) [facility] recommended growth at 28 weeks and 34 weeks with testing weekly starting at 36 weeks 28 week growth: 95%ile, see below 34 week growth: 96%ile 36 week testing # Itching of hands and feet, RESOLVED AST 41, all other labs WNL; Bile Acid 2 AST decreased to 27 at 28wks. OB Labs: Blood type: A+, antibody screen negative. Hgb (08/14): 14.1 Platelets (07/03): 283 Rubella: Immune Varicella: Immune RPR: non-reactive HBsAg: negative HIV: negative GC/Chlamydia: negative/negative 1hr gtt: 120 GBS (08/28): negative Imaging: Level II Anatomy US (05/03/25): Impression: 1. [place] at 19w5d gestational age. 2. No anomalies commonly detected by ultrasound were identified in the detailed anatomic survey within the limits of ultrasound. 3. Growth parameters and estimated weight are large for gestational age predicted by assigned JOEL. 4. The amniotic fluid volume appeared normal. 5. On transabdominal imaging the cervix appeared long and closed. 6. Placental lakes. #1 (near cord insertion): 3.2 x 1.5 x 3.5 cm. #2 (Rt/sup): 6.1 x 1.8 x 2.2 cm), no previa and other (several placental lakes, largest measuring 6 x 1.7 x 2 cm and 3 x 1.5 x 3.5 cm) Follow-up US (07/03/2025): IMPRESSION: 1. Sonographic gestational age 30 weeks 3 days and sonographic due date 09/08/2025. Sonographic age is 2 days ahead of the clinical age. 2. Estimated weight 95th percentile. Abdominal circumference greater than 97th percentile. Biparietal diameter also greater than 97th percentile. 3. There are two placental lakes present measuring 4.0 x 2.4 x 1.9 cm and 4.3 x 1.9 x 3.0 cm. Follow-up US (08/14/2025): IMPRESSION: Single viable intrauterine gestation in a cephalic presentation with estimated gestational age of 38 weeks 0 day. EFW is at 96th percentile. Objective Exam: Objective: Constitutional: Alert and oriented x3, no distress, coping well Vital signs stable, see nurse documentation Abdomen: gravid, contractions palpate mild to moderate with contractions and soft between Cervix: deferred NST: 150 bpm/moderate variability/accelerations present/ variable decelerations sporadic and rare/contractions every 2-3 min Vital Signs: Last Vital Signs Temp 98.3 F 09/08/25 12:59 Pulse 120 H 09/08/25 14:24 Resp 16 09/08/25 12:59 BP 130/75 09/08/25 14:24 Pulse Ox 99 09/08/25 14:23 Plan Plan: ASSESSMENT:?? 34 at 38 0/7 weeks gestation?? complicated by:??Stage 1 CKD, chronic HTN, IVF , placental lakes, hypothyroidism, hx PP hemorrhage and Preeclampsia with SF with hospital readmit, suspected macrosomia Labor type: Induced, not yet labor?? Category 2 FHR pattern with intermittent variables.??? Labor complicated by: cat 2 tracing, Elevated white blood cells noted on admit.?? GBS negative ?? PLAN:?? 1. Routine intrapartum cares as ordered. Continue expectant managment. 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 Monitoring per policy, continuous 3. Planning medicated . Candidate for analgesia of choice.??? 4. Patient encouraged to reposition and ambulate to promote physiologic labor and until epidural.?? 5. Desires PPTL, will notify OB after her delivery. 7. Recheck full CBC in morning 8. Anticipate NSVB
[2025-09-08] MEDS: LACTATED RINGERS 1000 ML 1,000 ML 125 ML IV ×2 (15:05→16:50)
--- NOTE | 2025-09-08 15:35 | PM.OBPNL ---
Subjective Date Seen: 09/08/25 Narrative: Faina is comfortable with her epidural. Reports since they did the [employer] and potentially rotated baby, ctx have spaced out. not much cervical change, and since now comfortable with labor epidural open to augmentatin with oxytocin. Objective Exam: Vitals Reviewed Constitutional:? Alert and oriented x3 Abdomen:? Soft, nontender, and gravid. Extremities:? No edema or erythema Cervix: 4 cm/70%/-1 station/anterior, soft, NST: 145 bpm/mod variability/+ accelerations/occas late decelerations/irreglar contractions anywhere from 1-6 min apart Vital Signs: Last Vital Signs Temp 98.1 F 09/08/25 14:31 Pulse 117 H 09/08/25 15:33 Resp 16 09/08/25 14:31 BP 115/63 09/08/25 15:33 Pulse Ox 100 09/08/25 14:28 Plan Plan: ASSESSMENT:? 34 yo at 38.0 weeks gestation? complicated by:?pre-e, CHTN, hypothyroid, IVF Labor type: Induced, Early labor? Category 2 FHR pattern with occas late decel, but overall reassuring.?? Labor complicated by: none GBS negative Labor epidural AROM: clear ? PLAN:? 1. Routine intrapartum cares as ordered. Start oxytocin titration protocol 2. Monitoring per policy, continuous 4. Patient encouraged to reposition in bed to promote physiologic labor and .? 6. Anticipate ?
[2025-09-08] MEDS: OXYTOCIN 30 unit/500 ML in NS 30 UNIT/500 ML BAG IVPB (16:03)
--- NOTE | 2025-09-08 21:53 | W.PM.OBVAGDE ---
OB Procedure Vag Delivery Mother Details Mother Details: The patient is a 34 year-old, 2, Para 2 now, admitted on 09/08/25 at 38w0d gestation for IOL. she started with AROM and after labor epidural and minimal change, was ok initiating oxytocin. Additional Details Amniotic Membrane Status: AROM Amniotic Membrane Rupture Date: 09/08/25 Amniotic Membrane Rupture Time: 09:02 Amniotic Membrane Fluid Description: Clear Analgesia/Anesthesia Type: Epidural Waterbirth: No Pitcoin: Yes Intrapartal Events: Labor Augmentation and Labor Induction Induction Method: AROM Delivery augmentation: pitocin Labor Onset: 13:53 Complete: 20:54 Pushin:57 Heart: heart tones during second stage were 145, mod bernardino with accel and occas variables. overall reassuring. Delivery Details Delivery Date: 09/08/25 Delivery Time: 21:32 Route of delivery: Infant Gender: Male Viability: Alive; Heart Rate Present Position at Delivery: OA Delivery Details: Patient was admitted for IOL for CHTN and progressed to complete after AROM and oxytocin. AROM with clear fluid at 0902 and oxytocin started after labor epidural around 1700. Patient was complete at 2053 and pushing at 2056. of a viable male at 2131. Vertex delivered OA. No nuchal cord or shoulder. Body delivered easily and without incident. passed to mothers abdomen with a vigorous cry. Cord was clamped and cut at > 5 minutes. APGARS were 7 at one minute and 8 at five minutes respectively. Mouth was bulb suctioned. Intact placenta with a 3 vessel cord delivered spontaneously at 2142. Fundus firm. no laceration identified other than two very small and superficial tears: one R labial and one L periuretheral: both hemostatic. QBL 50 cc. Mother and baby stable; mother plans to breastfeed. weight pending. Additional Details Shoulder Dystocia: No Event Summary Status: Mother and were stable after delivery. Disposition: floor
[2025-09-08] MEDS: ACETAMINOPHEN 500 MG TABLET 1000 MG PO (23:02)
[2025-09-09 02:42] VITALS: BP 123/81; PULSE 102; RESP 17; TEMP 36.6; O2SAT 98
--- NOTE | 2025-09-09 07:26 | P.OBPN_ITS ---
OB - PN:Subj Subjective Date Seen: 09/09/25 Narrative: Faina is a 34 y.o. who was admitted to L & D for induction of labor for CHTN.? She had an uncomplicated NVD.? ?? The patient feels well.? The pain is well controlled with current medications.? She has no new complaints.? She is breast feeding and reports things are going well.? the patient has done well.? Vitals have been stable.? She has remained afebrile.? Has a good appetite, is tolerating a general diet.? She is v oiding without difficulty.? She is passing gas and has not had a bowel movement.? She is ambulating and denies any dizziness.? Has Small amount of rubra lochia.?She would like to delay her plan for a tubal to a later date. OB - PN: Obj Exam Physical Exam: Vital signs: Temp Pulse Resp BP Pulse Ox O2 Del Method 97.9 F 102 H 17 123/81 98 Room Air 09/09/25 02:42 09/09/25 02:42 09/09/25 02:42 09/09/25 02:42 09/09/25 02:42 09/09/25 02:42 Narrative: GENERAL APPEARANCE:? normal affect, alert, no distress? MOOD:? appropriate? HEENT: normocephalic, neck supple, full ROM? CHEST:? Symmetrical chest wall movement.? Normal respiratory effort.? Clear to auscultation ? HEART:? regular rate and rhythm? ABDOMEN:? soft, non-tender. Uterine fundus is firm, at Umbilicus, Midline and is appropriate for the stage of recovery.? Bowel sounds present.? PERINEUM:? mild edema of the perineum, there is a 2nd degree laceration that is healing well.? EXTREMITIES:? normal and trace edema? OB - PN: Obj Data Labs Labs: Laboratory Results - last 24 hr 09/08/25 09/08/25 09/08/25 08:55 09:29 12:02 WBC 18.12 H RBC 4.56 Hgb 13.6 Hct 41.3 MCV 91 MCH 30 MCHC 33 RDW Coeff of Ruddy 12.3 Plt Count 345 Neut % (Auto) 68.7 Lymph % (Auto) 19.4 L [place] % (Auto) 8.6 Eos % (Auto) 2.8 Baso % (Auto) 0.2 Neut # (Auto) 12.40 H Lymph # (Auto) 3.50 H [place] # (Auto) 1.60 H Eos # (Auto) 0.50 Baso # (Auto) 0.00 Abs Immat Gran (auto) 0.10 Imm/Tot Granulo (auto) 0.3 BUN 6 Creatinine 0.5 Estimated Creat Clear 145.35 Estimated GFR 128 AST 37 H ALT 26 Urine Color Yellow Urine Appearance Clear Urine pH 8.0 Ur Specific [place] 1.015 Urine Protein Negative Urine Glucose (UA) Negative Urine Ketones Negative Urine Blood Negative Urine Nitrite Negative Urine Bilirubin Negative Urine Urobilinogen 0.2 Ur Leukocyte Esterase 1+ A Urine RBC 0-2 Urine WBC 2-5 Ur Squamous Epith Cells Moderate A Urine Bacteria Moderate A Urine Creatinine 37.8 Protein/Creatinin Ratio 0.32 H Urine Total Protein 12 Lab Acknowledgement Blood Type A Positive Antibody Screen NEGATIVE Crossmatch ([facility]) See Detail 09/08/25 13:41 WBC RBC Hgb Hct MCV MCH MCHC RDW Coeff of Ruddy Plt Count Neut % (Auto) Lymph % (Auto) [place] % (Auto) Eos % (Auto) Baso % (Auto) Neut # (Auto) Lymph # (Auto) [place] # (Auto) Eos # (Auto) Baso # (Auto) Abs Immat Gran (auto) Imm/Tot Granulo (auto) BUN Creatinine Estimated Creat Clear Estimated GFR AST ALT Urine Color Urine Appearance Urine pH Ur Specific [place] Urine Protein Urine Glucose (UA) Urine Ketones Urine Blood Urine Nitrite Urine Bilirubin Urine Urobilinogen Ur Leukocyte Esterase Urine RBC Urine WBC Ur Squamous Epith Cells Urine Bacteria Urine Creatinine Protein/Creatinin Ratio Urine Total Protein Lab Acknowledgement Test Added Blood Type Antibody Screen Crossmatch ([facility]) OB - PN: A/P Delivery Assessment and Plan (1) Chronic hypertension affecting : Status: Acute (2) resulting from in vitro fertilization: Status: Acute Plan day: 1 Plan: routine care Comments: G 2 P 2 status post uncomplicated NVD??? 1.? Continue route PP cares? 2.? .? May see if desired? 3.? Anticipate discharge home tomorrow? 4. May take Ibuprofen in addition to Tylenol if needed. Prefer she take Tylenol first and add Ibuprofen only as breakthrough. Nephology notes do not indciate need to avoid at this time.
[2025-09-09] MEDS: LEVOTHYROXINE 88 MCG TABLET PO (07:36)
[2025-09-09] MEDS: IBUPROFEN 600 MG TABLET PO (09:27)
[2025-09-09] MEDS: DOCUSATE SODIUM 100 MG CAPSULE PO (09:27)
[2025-09-09 09:38] VITALS: BP 119/76; PULSE 95; RESP 16; TEMP 36.7; O2SAT 97
[2025-09-09 12:27] VITALS: BP 116/78; PULSE 98; RESP 16; TEMP 36.8; O2SAT 96
[2025-09-09] MEDS: ACETAMINOPHEN 500 MG TABLET 1000 MG PO (12:32)
[2025-09-09 16:14] VITALS: BP 124/80; PULSE 107; RESP 16; TEMP 36.9; O2SAT 100
[2025-09-09 21:45] VITALS: BP 117/76; PULSE 74; RESP 20; TEMP 36.8; O2SAT 97
--- NOTE | 2025-09-09 23:28 | PC.NURSE ---
Patient called and reported she had passed a clot. When entered bathroom there was a tennis ball sized clot that broke apart easily. Fundus checked and was firm and at umbilicus. Sadi was in unit and was updated.
[2025-09-10 05:37] VITALS: BP 124/78; PULSE 96; RESP 20; O2SAT 97
[2025-09-10] MEDS: LEVOTHYROXINE 88 MCG TABLET PO (05:45)
[2025-09-10 09:34] VITALS: BP 115/77; PULSE 90; RESP 16; TEMP 36.8; O2SAT 97
[2025-09-10 10:12] LABS: Alanine Aminotransferase* 27 U/L (4-35); Aspartate Amino Transferase* 41 U/L (12-35); Blood Urea Nitrogen* 7 mg/dL (5-24); Creatinine* 0.6 mg/dL (0.5-1.5); Est. Creatinine Clearance* 121.13; Estimated Glomerular Filt Rate 122 ml/min
[2025-09-10] MEDS: DOCUSATE SODIUM 100 MG CAPSULE PO (10:27)
--- NOTE | 2025-09-10 10:37 | PM.OBDSVD1 ---
DS: Providers Provider Date Seen: 09/10/25 Date of admission: 09/08/25 07:31 Primary care physician: Maryuri Campbell MD Admitting Clinician: Alanis Negron CNM Attending Physician on discharge: Sadi Noble CNM Date of Discharge: 09/10/25 DS: Diagnosis Discharge Diagnosis (1) Pre-eclampsia added to pre-existing hypertension: Status: Acute (2) Chronic hypertension affecting : Status: Acute (3) care and examination of lactating mother: Status: Acute Exam Narrative: Exam Narrative: VSS, afebrile GENERAL APPEARANCE: ?normal affect, alert, no distress MOOD: ?appropriate HEENT: normocephalic, neck supple, full ROM CHEST: ?Symmetrical chest wall movement. ?Normal respiratory effort. ?Clear to auscultation HEART: ?regular rate and rhythm ABDOMEN: ?soft, non-tender. Uterine fundus is firm, at Umbilicus, Midline and is appropriate for the stage of recovery. ?Bowel sounds present. PERINEUM: ?mild edema of the perineum, there is a 2nd degree laceration that is healing well. EXTREMITIES: ?normal and trace edema Const: Vital Signs, click to edit/add: Vital Signs - 24 hr 09/09/25 12:27 09/09/25 16:14 09/09/25 21:45 Temperature 98.2 F 98.5 F 98.2 F Pulse Rate [Blood Pressure Cuff] 98 107 H 74 Respiratory Rate 16 16 20 Blood Pressure [Le ft Arm] 116/78 124/80 117/76 Blood Pressure [Ri ght Arm] Pulse Oximetry 96 100 97 Oxygen Delivery Me thod Room Air Room Air Room Air 09/10/25 05:37 09/10/25 09:34 Temperature 98.3 F Pulse Rate [Blood Pressure Cuff] 96 90 Respiratory Rate 20 16 Blood Pressure [Le ft Arm] 124/78 Blood Pressure [Ri ght Arm] 115/77 Pulse Oximetry 97 97 Oxygen Delivery Me thod Room Air Room Air Documenting provider has reviewed patient's vital signs: yes OB - DS: Summary Hospital Course Hospital Course: Jennifer is a 34 y.o. who was admitted to L & D for induction of labor for CHTN. ?She had an uncomplicated NVD. Has been diagnosed with superimposed preeclampsia without severe features. Lab work and blood pressures are stable. ?The patient feels well. ?The pain is well controlled with current medications. ?She has no new complaints. ?She is breast feeding and reports things are going well.? the patient has done well.? Vitals have been stable.? She has remained afebrile.? Has a good appetite, is tolerating a general diet. ?She is voiding without difficulty.? She is passing gas and has not had a bowel movement.? She is ambulating and denies any dizziness.? Has Small amount of rubra lochia although has passed one tennis ball sized clot overnight and had a marble sized one this morning. Reports periods of increased bleeding but short lived and is not soaking a pad in 1 hour. Reviewed s/s to return for evaluation with her. ?She was planning a tubal during this stay but decided against this yesterday cam discuss her plan when seen at 2 weeks in clinic. Peripartum Data Infant delivery method: Vaginal Laceration description: Perineal - 2nd Degree complications: none Gender: Male Infant Discharge Plan: Home Status at Discharge Functional status at discharge: independent ambulation Overall status at discharge: patient is progressing back to baseline Time Spent with Patient Time attestation: Total time spent providing and/or coordinating discharge services: Time spent: Less than 30 minutes Discharge Plan Discharge Disposition: Home, Self-Care Date of Admission: 09/08/25 07:31 Attending Provider on Discharge: Sadi Noble Primary Care Provider: Maryuri Campbell Condition: Stable Anticipated Discharge Date/Time: 09/10/25 12:00 Discharge Medications: New acetaminophen 500 mg Tablet 1,000 mg PO Q6H PRN (Reason: Pain) Qty: 0 0RF levothyroxine [Synthroid] 88 mcg Tablet 88 mcg PO DAILY@0700 Qty: 0 0RF docusate sodium 100 mg Capsule 100 mg PO DAILY Qty: 90 0RF ibuprofen 600 mg Tablet 600 mg PO Q6H PRNQty: 60 0RF Continued DHA 200 mg capsule 200 mg PO DAILY ascorbic acid (vitamin C) 500 mg tablet 500 mg PO QDAY levothyroxine 88 mcg tablet 88 mcg PO DAILY Qty: 90 2RF diphenhydramine HCl [Benadryl] 25 mg capsule 25 mg PO QHS PRN cholecalciferol (vitamin D3) 50 mcg (2,000 unit) capsule 50 mcg PO QDAY magnesium 250 mg tablet 250 mg PO DAILY Discontinued aspirin 81 mg tablet,delayed release (DR/EC) 81 mg PO QDAY Discharge Orders: Discharge Order (Routine); Ordered 09/10/25 Ordered By: Sadi Noble Patient Education: OB Over the Counter Medication Information, OB Vaginal/Breast Feeding Additional Instructions: Discharge instructions were reviewed with the patient including signs and symptoms of infection and home going medications Nothing vaginally for 6 weeks: no tampons or intercourse Off Work or School for 6 weeks Follow Up [facility] for a BP check?09/11 or 09/12 Call with BP greater than or equal to 150/100 2-week visit: discuss infant feeding concerns, review control options and screen for anxiety/depression. 6-week visit for an annual exam. consultation services are available to all mothers and babies for the first year after delivery.? To make an appointment, please call [phone]. Activity Level: Activity as Tolerated Discharge Diet: Regular Follow Up Appointments: [facility] [Provider Group] Forms: [employer] Info Instructions
[2025-09-10 10:45] LABS: Hematocrit* 38.7 % (33.0-51.0); Hemoglobin* 12.6 gm/dL (12.0-16.0); Mean Corpuscular HGB Conc 33 gm/dL (32-36); Mean Corpuscular Hemoglobin 30 pg (26-34); Mean Corpuscular Volume 92 fL (80-100); Red Blood Count* 4.20 m/uL (4.00-5.20); White Blood Count* 21.23 K/uL (4.50-11.00)
[2025-09-10 10:46] LABS: Slide Review Reflex No
--- NOTE | 2025-09-10 15:40 | PM.ANPOST ---
Post Anesthesia Note Post Anesthesia Note Patient seen: Inpatient Respiratory Status: adequate Cardiovascular Status: adequate Mental Status: baseline Pain: adequate Temp: baseline Anesthetic awareness: N/A Complications: none Follow care: none
== END 2025-09-10 14:18 | disposition home or self-care (01) | DRG 807 ==
PROVIDERS: Advanced Practice Midwife; Midwife, Lay; Admitting Provider Midwife; PCP Family Medicine; Visit Provider Midwife
DX: O10.22 Pre-existing hypertensive chronic kidney disease complicating childbirth (principal); Z37.0 Single live birth; I12.9 Hypertensive chronic kidney disease with stage 1 through stage 4 chronic kidney disease, or unspecified chronic kidney disease; N18.1 Chronic kidney disease, stage 1; O70.1 Second degree perineal laceration during delivery; O99.284 Endocrine, nutritional and metabolic diseases complicating childbirth; E03.9 Hypothyroidism, unspecified; Z3A.38 38 weeks gestation of pregnancy
CPT/HCPCS: 01967; 36415; 59200; 81001; 81003; 82565; 82570; 84156; 84450; 84460; 84520; 85025; 85027; 86850; 86900; 86901; 86922; 87086; A9270; J2795; J7120

== ENCOUNTER 2025-10-20 09:35 | Outpatient (CLI) | payer OTHER, SELFPAY | END 2025-10-20 09:36 | disposition home or self-care (01) | LOC: NFLDREF 09:36 | PROVIDERS: PCP Family Medicine; Visit Provider Midwife | DX: E03.9 Hypothyroidism, unspecified (principal) | CPT/HCPCS: 84443 ==